=== PATIENT | female | born 1930 | race Caucasian/White ===

== ENCOUNTER → 2016-06-28 | Outpatient (CLI) | payer MEDICARE ==
[~2016-06-28] MED LIST: CYMB60CA PO; DIAZ10 PO; EZET10 PO; MEVA40TA PO; PROP60 PO; REME15TA2 PO
[2016-06-28 14:01] LABS: ANION GAP 8 MEQ/L (5-15); AST (GOT) 22 U/L (15-37); BICARBONATE 25.7 MEQ/L (21.0-32.0); BLOOD UREA NITROGEN 13 MG/DL (7-18); CHLORIDE 109 MEQ/L (98-107); GLOMERULAR FILTRATION RATE 56 ML/MIN (>89); GLUCOSE,FASTING 66 MG/DL (74-99); POTASSIUM 3.8 MEQ/L (3.5-5.1); SODIUM (NA) 143 MEQ/L (136-145)
[2016-06-28 14:05] LABS: ALKALINE PHOSPHATASE 70 U/L (45-117); ALT (GPT) 24 U/L (10-53); HDL CHOLESTEROL 72.3 MG/DL (40.0-60.0); LDL CHOLESTEROL 87 MG/DL (0-99); TOTAL BILIRUBIN ADULT 0.4 MG/DL (0.2-1.0)
[2016-06-28 14:16] LABS: AUTOMATED NEUTROPHIL # 4.2 TH/MM3 (1.8-7.7); BASOPHIL # 0.1 TH/MM3 (0-0.2); BASOPHIL % 1.1 % (0.0-2.0); EOSINOPHIL # 0.6 TH/MM3 (0-0.4); HEMATOCRIT 43.5 % (35.0-46.0); HEMO FLAGS DIFF FINAL; LYMPH % 24.9 % (9.0-44.0); LYMPHOCYTE # 1.8 TH/MM3 (1.0-4.8); MEAN CELL VOLUME 90.6 FL (80.0-100.0); MEAN CORPUSCULAR HEMOGLOBIN 29.1 PG (27.0-34.0); MEAN CORPUSCULAR HGB CONC 32.2 % (32.0-36.0); MONO % 7.9 % (0.0-8.0); NEUT % 58.1 % (16.0-70.0); PLATELET COUNT 289 TH/MM3 (150-450); RED BLOOD COUNT 4.81 MIL/MM3 (4.00-5.30); WHITE BLOOD COUNT 7.2 TH/MM3 (4.0-11.0)
== END ==
LOC: PLAB 10:19
PROVIDERS: ATTEND Family Medicine
DX: E78.2 Mixed hyperlipidemia (principal)
CPT/HCPCS: 36415; 80053; 80061; 85025

== ENCOUNTER → 2017-01-31 | Outpatient (CLI) | payer MEDICARE ==
[2017-01-31 12:17] LABS: ANION GAP 7 MEQ/L (5-15); AST (GOT) 30 U/L (15-37); BICARBONATE 24.7 MEQ/L (21.0-32.0); BLOOD UREA NITROGEN 13 MG/DL (7-18); CHLORIDE 107 MEQ/L (98-107); GLOMERULAR FILTRATION RATE 58 ML/MIN (>89); GLUCOSE,FASTING 86 MG/DL (74-99); SODIUM (NA) 139 MEQ/L (136-145)
[2017-01-31 12:19] LABS: ALT (GPT) 32 U/L (10-53)
[2017-01-31 12:21] LABS: ALKALINE PHOSPHATASE 80 U/L (45-117); HDL CHOLESTEROL 84.1 MG/DL (40.0-60.0); LDL CHOLESTEROL 85 MG/DL (0-99); TOTAL BILIRUBIN ADULT 0.5 MG/DL (0.2-1.0)
== END ==
LOC: PLAB 10:15
PROVIDERS: ATTEND Family Medicine
DX: G25.0 Essential tremor (principal); E78.2 Mixed hyperlipidemia
CPT/HCPCS: 36415; 80053; 80061

== ENCOUNTER → 2017-08-16 | Outpatient (CLI) | payer MEDICARE ==
[2017-08-16 13:57] LABS: AST (GOT) 29 U/L (15-37); BICARBONATE 28.6 MEQ/L (21.0-32.0); BLOOD UREA NITROGEN 19 MG/DL (7-18); CALCIUM 9.3 MG/DL (8.5-10.1); CHLORIDE 106 MEQ/L (98-107); CREATININE 1.03 MG/DL (0.50-1.00); GLOMERULAR FILTRATION RATE 51 ML/MIN (>89); GLUCOSE,FASTING 78 MG/DL (74-99); SODIUM (NA) 143 MEQ/L (136-145)
[2017-08-16 13:58] LABS: ALT (GPT) 30 U/L (10-53); CHOLESTEROL 182 MG/DL (120-200); TRIGLYCERIDES 110 MG/DL (42-150)
[2017-08-16 14:01] LABS: ALKALINE PHOSPHATASE 75 U/L (45-117); CHOLESTEROL/ HDL RATIO 2.42 RATIO; HDL CHOLESTEROL 75.2 MG/DL (40.0-60.0); LDL CHOLESTEROL 85 MG/DL (0-99); TOTAL BILIRUBIN ADULT 0.6 MG/DL (0.2-1.0); TOTAL PROTEIN 7.4 GM/DL (6.4-8.2)
== END ==
LOC: PLAB 09:41
PROVIDERS: ATTEND Family Medicine
DX: L57.0 Actinic keratosis (principal); E78.2 Mixed hyperlipidemia; L91.8 Other hypertrophic disorders of the skin
CPT/HCPCS: 36415; 80053; 80061

== ENCOUNTER 2017-12-02 18:45 | Inpatient (IN) ==
[2017-12-02] MEDS ORDERED: Morphine Inj 4 MG/ML Vial IV.PUSH ONE ×2 (19:15→20:39)
[2017-12-02] MEDS ORDERED: Pantoprazole Inj 40 MG Vial IV.PUSH ONE (19:16)
[2017-12-02] MEDS: Sod Chloride 0.9% Inj 1,000 ML IV.CONT SCH (19:28)
[2017-12-02 19:33] LABS: Chloride 106 meq/L (98-107); Potassium 3.6 meq/L (3.5-5.1); Sodium 142 meq/L (136-145)
[2017-12-02 19:37] LABS: Albumin 3.8 g/dL (3.4-5.0); Anion Gap 12 meq/L (5-15); Blood Urea Nitrogen 22 mg/dL (7-18); Calcium 9.3 mg/dL (8.5-10.1); Carbon Dioxide 23.9 meq/L (21.0-32.0); Glucose,Random 139 mg/dL (74-106); Lipase 366 U/L (73-393)
--- NOTE | 2017-12-02 19:38 | ED ---
HPI General Chief Complaint: Abdominal Pain Stated Complaint: Abd pain x today Source: patient Mode of arrival: ambulatory Limitations: no limitations History of Present Illness HPI narrative: 87-year-old female presents to the emergency department by private transportation for complaint of upper abdominal pain since 10 AM today. Patient states that this is her third episode of abdominal pain this week. Patient states she was visiting her son in [place] on Tuesday and had to go to the emergency department while there because of severe upper abdominal pain and underwent CT imaging which revealed no acute abnormality and she was encouraged to follow-up with her primary care provider and her obstetrician gynecologist when she returned home. Patient states she has been having intermittent pain like this for the past year and was sent to have an ultrasound and HIDA scan by her primary care provider who told her that everything was okay as of October. Patient has had no fever chills patient has had intermittent bilious emesis and nausea. Patient has been following a low- fat diet. Patient states that eating has seemed to exacerbate some of her symptoms. Patient has had no hematemesis or coffee-ground emesis. Patient denies any melena or hematochezia. Patient has noted some dark stool and decreased bowel movement but normal flatus. Patient denies any chest pain or shortness of breath. Patient does have history of depression GERD and dyslipidemia. Patient denies any urinary symptoms or respiratory illness symptoms no shortness of breath or pleuritic chest pain no sweats no referred neck jaw back shoulder arm pain. At times abdominal pain does extend into her back. Patient rates her pain 9/10 in intensity. MD complaint: abdominal pain Onset (ago): week(s) Pain Consistency: intermittent Location: diffuse and epigastric Severity: severe Quality: cramping and aching Radiation: back Relieving factors: nothing Exacerbating factors: eating Context: history of similar episodes Associated symptoms: nausea and vomiting Treatments prior to arrival: other (non fatty diet) Related Data Home Medications Medication Instructions Recorded Confirmed ezetimibe [Zetia] 10 mg PO DAILY 12/02/17 12/02/17 lovastatin 80 mg PO QPM 12/02/17 12/02/17 mirtazapine 15 mg PO DAILY 12/02/17 12/02/17 Allergies Allergy/AdvReac Type Severity Reaction Status Date / Time No Known Allergies Allergy Verified 12/02/17 18:46 Review of Systems ROS: all other systems reviewed are negative PMFSH Medical History Medical History History of depression (Acute) History of high cholesterol (Acute) Surgical History Surgical History No history of previous surgery (Acute) Social History Social History Substance History: No History of Abuse Second Hand Smoke Exposure: No Smoking Status: Never smoker How Often Do You Have a Drink Containing Alcohol: Monthly or less Recent Travel in [facility] within the Last 8 Weeks: Yes Recent Out of Country Travel within the Last 8 Weeks: No Immunization History Tetanus Immunization: Unsure Hx Influenza Vaccine This Season: Yes Exam Narrative Exam Narrative: GENERAL: Well-nourished, well-developed patient. No respiratory distress, tearful. SKIN: Focused skin assessment warm/dry. HEAD: Normocephalic. EYES: No scleral icterus. No injection or drainage. NECK: Supple, trachea midline. No JVD or lymphadenopathy. CARDIOVASCULAR: Regular rate and rhythm without murmurs, gallops, or rubs. Bilateral radial and dorsalis pedis pulses 2+ to palpation. RESPIRATORY: Breath sounds equal bilaterally. No accessory muscle use. GASTROINTESTINAL: Abdomen soft, mild reproducible epigastric tenderness to palpation without guarding or rebound and no palpable pulsatile mass, nondistended. MUSCULOSKELETAL: No cyanosis, or edema. BACK: Nontender without obvious deformity. No CVA tenderness. Course Initial Documented Vital Signs Temperature 97.7 F 12/02/17 18:46 Pulse Rate 115 H 12/02/17 18:46 Respiratory Rate 18 12/02/17 18:46 Blood Pressure 199/97 H 12/02/17 18:46 Pulse Oximetry 96 12/02/17 18:46 Last Documented Vital Signs Temperature 97.7 F 12/02/17 18:46 Pulse Rate 94 H 12/02/17 22:25 Respiratory Rate 18 12/02/17 22:25 Blood Pressure 158/78 H 12/02/17 22:25 Pulse Oximetry 96 12/02/17 22:25 Medical Decision Making MDM Narrative Medical decision making narrative: 87-year-old female with complaint of upper abdominal pain radiating into her back intermittently with 3-4 episodes of similar complaint of pain this past week since Tuesday. Patient was visiting out of town in [place] and went to a local emergency department on Tuesday where CT imaging study identified no acute process and she was encouraged to follow-up with her primary care provider and obstetrician gynecologist upon returning to [place]. Patient had pain relief after receiving morphine. Patient denies chest pain or shortness of breath. Patient does have history of GERD depression and dyslipidemia. Patient states she has been following a low-fat diet without resolution of symptoms. Patient has had intermittent symptoms for approximately a year and was referred for an ultrasound and HIDA scan by her primary care provider in August and October which revealed no acute abnormalities according to the patient. Patient states this is her third bout of pain this week and rates her discomfort 9/10 in intensity. Patient has had bilious emesis without hematemesis or coffee-ground emesis. Patient states she has noticed dark stool but not black stool or grossly bloody stool. Patient denies diarrhea or constipation. Records will be requested from recent ER visit. Patient placed on bus driver/monitor with continuous pulse oximetry IV access obtained specimens collected and sent for resulting; patient administered Zofran 4 mg IV maintenance IV fluids normal saline at 100 cc/h, Protonix 40 mg IV and morphine sulfate 2 mg IV 1 dose EKG performed shows sinus rhythm no acute ST elevation injury pattern or ectopy noted. At 8:50 PM patient complains of recurrent pain additional morphine sulfate 1 mg IV administered patient given bolus of normal saline 250 cc to be followed by 2 and 50 cc stable blood pressure mild tachycardia. CTA of the abdomen and pelvis has been ordered to evaluate for mesenteric ischemia. Patient on chest x -ray is noted to have a fairly large hiatal hernia. CBC with automated differential mild leukocytosis 13,600 and lactic acid is minimally elevated at 2.1. Patient identified to have renal insufficiency which has worsened since last laboratory work 08/2017. At 9:20 PM records from [facility] were received and workup was unremarkable with CT abdomen pelvis which revealed no acute intra-abdominal or pelvic abnormality white count was mildly elevated at 13,400 with normal chemistries and renal function BUN was 17 and creatinine of 0.9. Patient has gone for CT imaging of abdomen pelvis. [address] abdomen and pelvis shows no significant arterial stenosis large hiatal hernia with very distended stomach with induration of fat around the hiatal hernia probable source of abdominal pain colonic diverticula without inflammatory changes and small left pleural effusion with atelectasis to the left lower lobe. Patient informed of imaging results with recommendation for placement of NG tube observation admission and bowel rest. Patient's case discussed with surgery, concurs with current plan and plan for consultation as needed to medicine service; call placed to medicine service for observation admission. Medical Screen Exam Complete: Yes Emergency Medical Condition: Yes Differential Diagnosis Differential Diagnosis: Abdominal pain, gastritis/peptic ulcer disease, cholecystitis/biliary colic/choledocholithiasis, pancreatitis, diverticulitis, also to consider bowel obstruction,mesenteric ischemia,viscus perforation, abdominal aortic aneurysm, ACS, [place] Medical Records Medical records reviewed: Yes I reviewed the patient's medical records. Lab Data Lab results reviewed: Yes I reviewed the patient's lab results. Result diagrams: 12/02/17 19:10 12/02/17 19:10 Lab Results 12/02/17 12/02/17 12/02/17 Range/Units 19:10 19:10 19:18 CBC w Diff Auto diff final WBC 13.6 H (4.0-11.0) th/mm3 RBC 5.07 (4.00-5.30) mil/mm3 Hgb 15.4 H (11.6-15.3) gm/dL Hct 45.6 (35.0-46.0) % MCV 90.0 (80.0-100.0) fL MCH 30.4 (27.0-34.0) pg MCHC 33.8 (32.0-36.0) % RDW 13.9 (11.6-17.2) % Plt Count 340 (150-450) th/mm3 MPV 8.0 (7.0-11.0) fL Neut % (Auto) 87.7 H (16.0-70.0) % Lymph % (Auto) 7.9 L (9.0-44.0) % [place] % (Auto) 3.6 (0.0-8.0) % Eos % (Auto) 0.3 (0.0-4.0) % Baso % (Auto) 0.5 (0.0-2.0) % Neut # (Auto) 11.9 H (1.8-7.7) th/mm3 Lymph # (Auto) 1.1 (1.0-4.8) th/mm3 [place] # (Auto) 0.5 (0.0-0.9) th/mm3 Eos # (Auto) 0.0 (0.0-0.4) th/mm3 Baso # (Auto) 0.1 (0.0-0.2) th/mm3 WBC Differential . Differential Comment . Sodium 142 (136-145) meq/L Potassium 3.6 (3.5-5.1) meq/L Chloride 106 (98-107) meq/L Carbon Dioxide 23.9 (21.0-32.0) meq/L Anion Gap 12 (5-15) meq/L BUN 22 H (7-18) mg/dL Creatinine 1.20 H (0.50-1.00) mg/dL Estimated GFR 43 L (>89) mL/min Random Glucose 139 H (74-106) mg/dL Lactic Acid 2.1 H (0.4-2.0) mmol/L Calcium 9.3 (8.5-10.1) mg/dL Total Bilirubin 0.4 (0.2-1.0) mg/dL AST 28 (15-37) U/L ALT 31 (10-53) U/L Alkaline Phosphatase 86 (45-117) U/L Troponin I Less than 0.02 L (0.02-0.05) ng/mL Total Protein 7.8 (6.4-8.2) g/dL Albumin 3.8 (3.4-5.0) g/dL Lipase 366 (73-393) U/L Urine Color (Yellw/Straw) Urine Clarity (Clear) Urine pH (5.0-8.5) Ur Specific [place] (1.002-1.035) Urine Protein (Neg-Trace) mg/dL Urine Glucose (UA) (Negative) mg/dL Urine Ketones (Negative) mg/dL Urine Occult Blood (Negative) Urine Nitrate (Negative) Urine Bilirubin (Negative) Urine Urobilinogen (Less than 2) mg/dL Ur Leukocyte Esterase (Negative) Urine RBC (0-3) /hpf Urine WBC (0-5) /hpf Urine WBC Clumps (None) Ur Squamous Epith Cells (0-5) /hpf Micro UA Comment Ur Microscopic Review Urine Culture Comments 12/02/17 Range/Units 22:10 CBC w Diff WBC (4.0-11.0) th/mm3 RBC (4.00-5.30) mil/mm3 Hgb (11.6-15.3) gm/dL Hct (35.0-46.0) % MCV (80.0-100.0) fL MCH (27.0-34.0) pg MCHC (32.0-36.0) % RDW (11.6-17.2) % Plt Count (150-450) th/mm3 MPV (7.0-11.0) fL Neut % (Auto) (16.0-70.0) % Lymph % (Auto) (9.0-44.0) % [place] % (Auto) (0.0-8.0) % Eos % (Auto) (0.0-4.0) % Baso % (Auto) (0.0-2.0) % Neut # (Auto) (1.8-7.7) th/mm3 Lymph # (Auto) (1.0-4.8) th/mm3 [place] # (Auto) (0.0-0.9) th/mm3 Eos # (Auto) (0.0-0.4) th/mm3 Baso # (Auto) (0.0-0.2) th/mm3 WBC Differential Differential Comment Sodium (136-145) meq/L Potassium (3.5-5.1) meq/L Chloride (98-107) meq/L Carbon Dioxide (21.0-32.0) meq/L Anion Gap (5-15) meq/L BUN (7-18) mg/dL Creatinine (0.50-1.00) mg/dL Estimated GFR (>89) mL/min Random Glucose (74-106) mg/dL Lactic Acid (0.4-2.0) mmol/L Calcium (8.5-10.1) mg/dL Total Bilirubin (0.2-1.0) mg/dL AST (15-37) U/L ALT (10-53) U/L Alkaline Phosphatase (45-117) U/L Troponin I (0.02-0.05) ng/mL Total Protein (6.4-8.2) g/dL Albumin (3.4-5.0) g/dL Lipase (73-393) U/L Urine Color Yellow (Yellw/Straw) Urine Clarity Clear (Clear) Urine pH 7.0 (5.0-8.5) Ur Specific [place] 1.015 (1.002-1.035) Urine Protein Trace (Neg-Trace) mg/dL Urine Glucose (UA) Negative (Negative) mg/dL Urine Ketones 15 H (Negative) mg/dL Urine Occult Blood Small H (Negative) Urine Nitrate Negative (Negative) Urine Bilirubin Negative (Negative) Urine Urobilinogen 0.2 (Less than 2) mg/dL Ur Leukocyte Esterase Small H (Negative) Urine RBC 0-3 (0-3) /hpf Urine WBC 9-20 H (0-5) /hpf Urine WBC Clumps Few H (None) Ur Squamous Epith Cells 0-5 (0-5) /hpf Micro UA Comment Culture indicated Ur Microscopic Review Microscopic reviewed Urine Culture Comments Culture indicated Imaging Data Radiologist's impression: Chest X-Ray 12/02/17 19:08 CONCLUSION: Suspected large hiatal hernia. Abdomen/Pelvis CTA 12/02/17 19:56 CONCLUSION: 1. No significant area of arterial stenosis is seen. 2. Large hiatal hernia with a very distended stomach. There is some mild induration of the fat around the hiatal hernia. It is thought the dilated hiatal hernia is much more likely a source for abdominal pain. 3. Colonic diverticula without inflammatory change. 4. Minimal left pleural effusion with accompanying atelectasis or consolidation at the left lower lobe. ECG Data EKG Prior to Arrival: No Prior ECG tracings: not available for review Interpretation: EKG: Sinus tachycardia rate [address] elevation injury pattern or ectopy, age-indeterminate Q-wave inferiorly, artifact is present at baseline. Discharge Plan Discharge Disposition Patient Disposition: 30 Still Patient Discharge Condition Condition: Stable Discharge Details Diagnosis: Abdominal pain, Hiatal hernia, UTI (urinary tract infection) Physicians Team ED Provider: Riddhi Strickland Primary Care Provider: Opal Rossi Rxs /Orders / Referrals /Forms Prescriptions: No Action lovastatin 40 mg Tablet 80 mg PO QPM RF: 0 mirtazapine 15 mg Tablet 15 mg PO DAILY RF: 0 ezetimibe [Zetia] 10 mg Tablet 10 mg PO DAILY RF: 0 Status ED Status: Admitted Observation Patient
[2017-12-02 19:40] LABS: Alanine Aminotransferase 31 U/L (10-53); Aspartate Aminotransferase 28 U/L (15-37); Glomerular Filtration Rate 43 mL/min (>89)
[2017-12-02 19:42] LABS: Total Protein 7.8 g/dL (6.4-8.2)
[2017-12-02 19:43] LABS: Alkaline Phosphatase 86 U/L (45-117)
[2017-12-02 19:45] LABS: Baso # (Auto) 0.1 th/mm3 (0.0-0.2); Baso % (Auto) 0.5 % (0.0-2.0); Eos % (Auto) 0.3 % (0.0-4.0); Hematocrit 45.6 % (35.0-46.0); Hemoglobin 15.4 gm/dL (11.6-15.3); Lymph # (Auto) 1.1 th/mm3 (1.0-4.8); Lymph % (Auto) 7.9 % (9.0-44.0); Mean Corpuscular HGB Conc 33.8 % (32.0-36.0); Mean Corpuscular Hemoglobin 30.4 pg (27.0-34.0); Mono # (Auto) 0.5 th/mm3 (0.0-0.9); Mono % (Auto) 3.6 % (0.0-8.0); Neut # (Auto) 11.9 th/mm3 (1.8-7.7); Neut % (Auto) 87.7 % (16.0-70.0); Platelet Count 340 th/mm3 (150-450); Red Blood Count 5.07 mil/mm3 (4.00-5.30); Red Cell Distribution Width 13.9 % (11.6-17.2); White Blood Count 13.6 th/mm3 (4.0-11.0)
--- NOTE | 2017-12-02 19:56 | XR ---
EXAM DATE: 12/02/2017 7:39 PM EDT AGE/SEX: 87 years / Female INDICATIONS: Chest discomfort, abdominal pain for 1 week CLINICAL DATA: This is the patient's initial encounter. Patient reports that signs and symptoms have been present for 1 day and indicates a pain score of 0/10. MEDICAL/SURGICAL HISTORY: None. None. COMPARISON: No prior exams available for comparison. FINDINGS: There is an air-containing mass in the lower chest thought almost certainly to represent a large hia roberto hernia. The heart size is normal. The lungs are grossly clear. CONCLUSION: Suspected large hiatal hernia. Electronically signed by: Yo Boland MD 12/02/2017 7:55 PM EDT
[2017-12-02] MEDS ORDERED: Sodium Chlor 0.9% Inj 500 ML IV.SIG SCH (21:00)
[2017-12-02 22:26] LABS: Bilirubin,Urine Negative (Negative); Clarity,Urine Clear (Clear); Color,Urine Yellow (Yellw/Straw); Glucose,Urine (UA) Negative (Negative); Leukocyte Esterase,Urine Small (Negative); Nitrite,Urine Negative (Negative); Specific Gravity,Urine 1.015 (1.002-1.035); Urobilinogen,Urine 0.2 mg/dL (Less than 2)
[2017-12-02 22:38] LABS: RBC,Urine 0-3 /hpf (0-3); Squamous Epithelial Cell,Urine 0-5 /hpf (0-5)
--- NOTE | 2017-12-02 22:41 | CT ---
EXAM DATE: 12/02/2017 10:14 PM EDT AGE/SEX: 87 years / Female INDICATIONS: Abdomen pain. Possible mesentery ischemia. CLINICAL DATA: This is the patient's initial encounter. Patient reports that signs and symptoms have been present for 1 day and indicates a pain score of 8/10. MEDICAL/SURGICAL HISTORY: . Depression. High cholesterol. None. RADIATION DOSE: 18.42 CTDI (mGy) COMPARISON: No prior exams available for comparison. TECHNIQUE: Volumetric scanning was performed using a multi-row detector CT scanner during bolus infu estrellita of 75 ml Omnipaque 350 (iohexol) nonionic water-soluble contrast as a single exam dose. The d luci was post processed with a variety of visualization algorithms including full volume maximum inten sity projection, multi-planar sliding thin slab reformation, curved planar reformation, and surface r endering techniques. Using automated exposure control and adjustment of the mA and/or kV according t o patient size, radiation dose was kept as low as reasonably achievable to obtain optimal diagnostic quality images. DICOM format image data is available electronically for review and comparison. FINDINGS: Abdominal Aorta: The lumen is smooth without significant narrowing or aneurysmal dilation. The pr oximal celiac and superior mesenteric arteries are patent and normal in diameter. There are solitary renal arteries bilaterally without gross abnormality. There is minimal atherosclerotic calcification present. Bifurcation: Normal. Right Pelvis: The right common iliac, internal iliac, and external iliac vessels are patent without luminal irregularity. Left Pelvis: The left common iliac, internal iliac, and external iliac vessels are patent and withou t luminal irregularity. There is a large hiatal hernia. The stomach appears very distended. There is some induration in the f at around the hiatal hernia. There is a 3.2 cm cyst at the superior medial right kidney. Colonic dive rticula are present. There is a minimal left pleural effusion. There is atelectasis or consolidation at the left lower lobe. There is a chronic appearing concave deformity at the anterior superior aspec t of the L2 vertebral body. There is degenerative change in the lumbar spine. CONCLUSION: 1. No significant area of arterial stenosis is seen. 2. Large hiatal hernia with a very distended stomach. There is some mild induration of the fat aroun d the hiatal hernia. It is thought the dilated hiatal hernia is much more likely a source for abdomin al pain. 3. Colonic diverticula without inflammatory change. 4. Minimal left pleural effusion with accompanying atelectasis or consolidation at the left lower lo be. Electronically signed by: Yo Boland MD 12/02/2017 10:40 PM EDT
[2017-12-03] MEDS: Morphine Sulfate Inj 2 MG/ML Vial IV.PUSH PRN ×4 (01:29→19:46)
[2017-12-03] MEDS ORDERED: Bisacodyl 10 MG Supp RECTAL PRN (01:39)
[2017-12-03] MEDS: Sod Chloride 0.9% Inj 1,000 ML IV.CONT SCH ×2 (05:18→15:24)
--- NOTE | 2017-12-03 09:50 | P.HP ---
History of Present Illness Primary Care Physician: Opal Rossi MD Chief Complaint: Abdominal pain History of Present Illness: 87-year-old female with known history of hyperlipidemia, depression who presented the hospital because of abdominal pain. Patient states that she has relatively chronic abdominal pain which she is been undergoing workup by her primary medical doctor Dr. Rossi over the last few months. Patient states that she had abdominal ultrasound performed and then subsequently referred to have a HIDA scan performed. She is told that she produces too much bile. However patient has continued abdominal pain. She did go visit her son up in [place] 2 weeks ago and she just progressively had abdominal pain with dry heaves. She went to a ER up in [place] and they did evaluation on her and told her that they could not find anything wrong. The pain progressively got worse so she flew home 1 week early and came straight to the emergency department without going home. Patient had workup done emergency department and had findings could have of sepsis to include leukocytosis, lactic acidosis, tachycardia, urinary tract infection. CT scan was done of the abdomen which did indicate distended hiatal hernia which could be the etiology of her abdominal comfort. ER physician did discuss the case with general surgery who is in agreement with the tentative treatment plan of NG tube to low intermittent suction and consult as needed. Upon evaluating the patient she does have NG tube in place with continued output. Patient still holding her abdomen indicates she still having significant amount of pain. Patient denies any hematemesis. She states that there was dark colored stool. She indicates that the ER physician did a test and told her that it was not blood. Patient indicates that she is not followed up with any GI physician in reference to her abdominal pain. - Diagnosis (1) Sepsis (2) Abdominal pain (3) Hiatal hernia (4) UTI (urinary tract infection) Review of Systems All other systems reviewed negative except as stated in HPI Gastrointestinal: Reports abdominal pain, Reports nausea, Reports vomiting PMFSH - History History Provided By: Patient - Medical History Medical History: Medical History (Last Reviewed 12/02/17 @ 19:31 by Riddhi Strickland MD) History of depression History of high cholesterol - Surgical History Surgical History: Surgical History (Last Updated 12/03/17 @ 09:31 by ELROY Sullivan) History of cataract surgery - Family History Family History: Family History (Last Updated 12/03/17 @ 09:31 by ELROY Sullivan) Father History of myocardial infarction - Tobacco History Second Hand Smoke Exposure: No Tobacco Use In Past 30 Days: No Smoking Status: Former smoker Number of Pack Years (if former smoker): 10 (Patient states that she quit smoking 50 years ago) - Alcohol History How Often Do You Have a Drink Containing Alcohol: Never - Substance Use History Substance History: No History of Abuse - Travel History Recent Travel in the [place] Within the Last 8 Weeks: Yes Recent Travel Out of the Country Within the Last 8 Weeks: No - Immunization History Tetanus Immunization: <5 Years Hx Influenza Vaccine This Season: Yes Medications and Allergies Active Medications: Active Medications Al Hydroxide/Mg Hydroxide (Milk Of Magnesia Liq) 30 ml PO Q12H PRN PRN Reason: Mild Constipation Bisacodyl (Dulcolax Supp) 10 mg RECTAL DAILY PRN PRN Reason: SEVERE CONSITIPATION Sodium Chloride (Ns Inj) 1,000 mls @ 100 mls/hr IV.CONT .Q10H PAPO Last Admin: 12/03/17 05:18 Dose: 100 mls/hr Sodium Chloride (Ns Inj) 500 mls @ 0 mls/hr IV.SIG BOLUS PAPO Last Infusion: 12/02/17 22:18 Dose: Infused Ceftriaxone Sodium 1,000 mg/ (Sodium Chloride) 100 mls @ 200 mls/hr IV.SIG Q24H PAPO Lactulose (Lactulose Liq) 30 ml PO DAILY PRN PRN Reason: SEVERE CONSITIPATION Morphine Sulfate (Morphine Inj) 2 mg IV.PUSH Q3H PRN PRN Reason: ABDOMINAL PAIN Last Admin: 12/03/17 06:37 Dose: 2 mg Ondansetron HCl (Zofran Inj) 4 mg IV.PUSH Q6H PRN PRN Reason: NAUSEA OR VOMITING Last Admin: 12/03/17 04:10 Dose: 4 mg Senna/Docusate Sodium (Marian-Colace) 1 tab PO BID PAPO Sennosides (Senokot) 17.2 mg PO Q12H PRN PRN Reason: Moderate Constipation Sodium Chloride (Ns Flush) 2 ml IV.FLUSH PRN PRN PRN Reason: FLUSH AFTER USING IV ACCESS Allergies Allergy/AdvReac Type Severity Reaction Status Date / Time No Known Allergies Allergy Verified 12/02/17 18:46 Home Medications Medication Instructions Recorded Confirmed Type ezetimibe [Zetia] 10 mg PO DAILY 12/02/17 12/02/17 History lovastatin 80 mg PO QPM 12/02/17 12/02/17 History mirtazapine 15 mg PO DAILY 12/02/17 12/02/17 History Exam Vital signs: Vital Signs 12/02/17 18:46 12/02/17 20:00 12/02/17 20:50 Temperature 97.7 F Pulse Rate 115 H 92 H Respiratory Rate Blood Pressure 199/97 H 145/82 H Pulse Oximetry 96 98 12/02/17 22:25 12/03/17 00:28 12/03/17 07:33 Temperature 97.7 F 97.8 F Pulse Rate 94 H 97 H 92 H Respiratory Rate Blood Pressure 158/78 H 170/83 H 146/73 H Pulse Oximetry 96 93 L 92 L Intake & Output 12/02/17 12/03/17 12/03/17 18:59 06:59 18:59 Intake Total 1600 / 1600 Balance 1600 / 1600 Weight 66.8 kg 61.1 kg Intake: IV 1600 / 1600 NS Inj 1,000 ML @ 100 mls/hr IV 1000 / 1000 .CONT .Q10H PAPO Rx#:[id number] NS Inj 500 ML @ Wide Open IV. 500 / 500 SIG BOLUS PAPO Rx#:[id number] Rocephin Inj 1,000 MG In NS Inj 100 / 100 100 ML @ 200 mls/hr IV.SIG ONCE ONE Rx#:[id number] Oral 0 / 0 Other: # Voids 1 Date of Last Bowel Movement 12/02/17 Weight On Admission 61.4 kg Narrative: GENERAL: Well-developed, well-nourished, in no acute distress. alert and orientated HEENT: Head is normocephalic without any lesions or masses noted. Facial features are symmetric. Eyes: Pupils equal round reactive to light. Extraocular muscles are intact. Conjunctivae were clear. Oropharyngeal: Pharynx without any erythema edema. Tongue is midline without deviation. Buccal mucosa is moist without any masses or lesions. NG tube in place to low intermittent wall suction with green fluid NECK: Supple without any masses. Trachea midline no deviation. No JVD, no bruits are appreciated CARDIAC: Regular rhythm, regular rate. S1/S2 are heard. No murmurs gallops or rubs. LUNGS: Clear to auscultation bilaterally. No wheeze, rhonchi or rales. No use of accessory muscles on inspiration or expiration. ABDOMEN: Soft, mild epigastric tenderness. Nondistended. Bowel sounds heard in all 4 quadrants. No organomegaly or masses. Negative rebound, negative guarding. EXTREMITIES: No edema, pulses are equal bilaterally. No cyanosis or clubbing NEUROLOGY: Mood and affect appear appropriate. Cranial nerves II through XII grossly intact. Muscle strength 5/5 in upper and lower extremities bilaterally. Deep tendon reflexes are 2+ in upper and lower extremities bilaterally. Results - Labs CBC & Chem 7: 12/02/17 19:10 12/02/17 19:10 Labs: Laboratory Results - last 24 hr 12/02/17 12/02/17 12/02/17 19:10 19:10 19:18 CBC w Diff Auto diff final WBC 13.6 H RBC 5.07 Hgb 15.4 H Hct 45.6 MCV 90.0 MCH 30.4 MCHC 33.8 RDW 13.9 Plt Count 340 MPV 8.0 Neut % (Auto) 87.7 H Lymph % (Auto) 7.9 L Andrews % (Auto) 3.6 Eos % (Auto) 0.3 Baso % (Auto) 0.5 Neut # (Auto) 11.9 H Lymph # (Auto) 1.1 Andrews # (Auto) 0.5 Eos # (Auto) 0.0 Baso # (Auto) 0.1 WBC Differential . Differential Comment . Sodium 142 Potassium 3.6 Chloride 106 Carbon Dioxide 23.9 Anion Gap 12 BUN 22 H Creatinine 1.20 H Estimated GFR 43 L Random Glucose 139 H Lactic Acid 2.1 H Calcium 9.3 Total Bilirubin 0.4 AST 28 ALT 31 Alkaline Phosphatase 86 Troponin I Less than 0.02 L Total Protein 7.8 Albumin 3.8 Lipase 366 Urine Color Urine Clarity Urine pH Ur Specific [place] Urine Protein Urine Glucose (UA) Urine Ketones Urine Occult Blood Urine Nitrate Urine Bilirubin Urine Urobilinogen Ur Leukocyte Esterase Urine RBC Urine WBC Urine WBC Clumps Ur Squamous Epith Cells Micro UA Comment Ur Microscopic Review Urine Culture Comments 12/02/17 22:10 CBC w Diff WBC RBC Hgb Hct MCV MCH MCHC RDW Plt Count MPV Neut % (Auto) Lymph % (Auto) Andrews % (Auto) Eos % (Auto) Baso % (Auto) Neut # (Auto) Lymph # (Auto) Andrews # (Auto) Eos # (Auto) Baso # (Auto) WBC Differential Differential Comment Sodium Potassium Chloride Carbon Dioxide Anion Gap BUN Creatinine Estimated GFR Random Glucose Lactic Acid Calcium Total Bilirubin AST ALT Alkaline Phosphatase Troponin I Total Protein Albumin Lipase Urine Color Yellow Urine Clarity Clear Urine pH 7.0 Ur Specific [place] 1.015 Urine Protein Trace Urine Glucose (UA) Negative Urine Ketones 15 H Urine Occult Blood Small H Urine Nitrate Negative Urine Bilirubin Negative Urine Urobilinogen 0.2 Ur Leukocyte Esterase Small H Urine RBC 0-3 Urine WBC 9-20 H Urine WBC Clumps Few H Ur Squamous Epith Cells 0-5 Micro UA Comment Culture indicated Ur Microscopic Review Microscopic reviewed Urine Culture Comments Culture indicated - Imaging Impressions Chest X-Ray 12/02/17 19:08 CONCLUSION: Suspected large hiatal hernia. Abdomen/Pelvis CTA 12/02/17 19:56 CONCLUSION: 1. No significant area of arterial stenosis is seen. 2. Large hiatal hernia with a very distended stomach. There is some mild induration of the fat around the hiatal hernia. It is thought the dilated hiatal hernia is much more likely a source for abdominal pain. 3. Colonic diverticula without inflammatory change. 4. Minimal left pleural effusion with accompanying atelectasis or consolidation at the left lower lobe. Caprini VTE Risk Assessment Caprini VTE Risk Assessment: Moderate/High Risk (score >= 2) Caprini Risk Assessment Model: Point Value = 1 Point Value = 2 Point Value = 3 Point Value = 5 Age 41-60 Minor surgery BMI > 25 kg/m2 Swollen legs Varicose veins or History of unexplained or recurrent spontaneous Oral contraceptives or hormone replacement Sepsis (< 1 month) Serious lung disease, including pneumonia (< 1 month) Abnormal pulmonary function Acute myocardial infarction Congestive heart failure (< 1 month) History of inflammatory bowel disease Medical patient at bed rest Age 61-74 Arthroscopic surgery Major open surgery (> 45 min) Laparoscopic surgery (> 45 min) Malignancy Confined to bed (> 72 hours) Immobilizing plaster cast Central venous access Age >= 75 History of VTE Family history of VTE Factor V Leiden Prothrombin [id number] Lupus anticoagulant Anticardiolipin antibodies Elevated serum homocysteine Heparin-induced thrombocytopenia Other congenital or acquired thrombophilia Stroke (< 1 month) Elective arthroplasty Hip, pelvis, or leg fracture Acute spinal cord injury (< 1 month) Prophylaxis Regimen: Total Risk Factor Score Risk Level Prophylaxis Regimen 0-1 Low Early ambulation 2 Moderate Order ONE of the following: *Sequential Compression Device (SCD) *Heparin 5000 units SQ BID 3-4 Higher Order ONE of the following medications: *Heparin 5000 units SQ TID *Enoxaparin/Lovenox 40 mg SQ daily (WT < 150 kg, CrCl > 30 mL/min) *Enoxaparin/Lovenox 30 mg SQ daily (WT < 150 kg, CrCl > 10-29 mL/min) *Enoxaparin/Lovenox 30 mg SQ BID (WT < 150 kg, CrCl > 30 mL/min) AND/OR *Sequential Compression Device (SCD) 5 or more Highest Order ONE of the following medications: *Heparin 5000 units SQ TID (Preferred with Epidurals) *Enoxaparin/Lovenox 40 mg SQ daily (WT < 150 kg, CrCl > 30 mL/min) *Enoxaparin/Lovenox 30 mg SQ daily (WT < 150 kg, CrCl > 10-29 mL/min) *Enoxaparin/Lovenox 30 mg SQ BID (WT < 150 kg, CrCl > 30 mL/min) AND *Sequential Compression Device (SCD) Assessment and Plan - Assessment (1) Sepsis Code(s): A41.9 - Sepsis, unspecified organism Status: Acute (2) Abdominal pain Code(s): R10.9 - Unspecified abdominal pain Status: Acute (3) Hiatal hernia Code(s): K44.9 - Diaphragmatic hernia without obstruction or gangrene Status: Acute (4) UTI (urinary tract infection) Code(s): N39.0 - Urinary tract infection, site not specified Status: Acute - Plan Sepsis -Patient met criteria with leukocytosis, tachycardia, lactic acidosis, urinary tract infection -Chest x-ray only indicated large hiatal hernia -CT the abdomen indicated mild left pleural effusion with atelectasis and/or consolidation left lower lobe -Cultures and urine culture are pending -Patient continued on Rocephin -Follow-up CBC, lactic acid level Large distended hiatal hernia with inflammatory findings -Likely the etiology of the patient's chronic abdominal pain -NG tube to low intermittent suction -General surgery consultation for further recommendations -Pain control Hyperlipidemia -Continue to hold medications until patient able tolerate p.o. Depression -Continue to hold medication until patient able to tolerate p.o. DVT prevention -Sequential compression devices (2) Abdominal pain Qualifiers: Abdominal location: upper abdomen, unspecified Qualified Code(s): R10.10 - Upper abdominal pain, unspecified (4) UTI (urinary tract infection) Qualifiers: Urinary tract infection type: site unspecified Hematuria presence: without hematuria Qualified Code(s): N39.0 - Urinary tract infection, site not specified
[2017-12-03] MEDS: Senna/Docusate Sodium 8.6/50 MG Tablet PO SCH ×2 (10:19→21:56)
[2017-12-03 10:55] LABS: Baso # (Auto) 0.1 th/mm3 (0.0-0.2); Baso % (Auto) 0.7 % (0.0-2.0); Eos % (Auto) 0.4 % (0.0-4.0); Hematocrit 42.8 % (35.0-46.0); Hemoglobin 14.4 gm/dL (11.6-15.3); Lymph # (Auto) 1.3 th/mm3 (1.0-4.8); Lymph % (Auto) 11.2 % (9.0-44.0); Mean Corpuscular HGB Conc 33.8 % (32.0-36.0); Mean Corpuscular Hemoglobin 30.6 pg (27.0-34.0); Mean Corpuscular Volume 90.8 fL (80.0-100.0); Mean Platelet Volume 7.6 fL (7.0-11.0); Mono # (Auto) 0.8 th/mm3 (0.0-0.9); Mono % (Auto) 7.3 % (0.0-8.0); Neut # (Auto) 9.1 th/mm3 (1.8-7.7); Neut % (Auto) 80.4 % (16.0-70.0); Platelet Count 325 th/mm3 (150-450); Red Blood Count 4.72 mil/mm3 (4.00-5.30); Red Cell Distribution Width 14.2 % (11.6-17.2); White Blood Count 11.3 th/mm3 (4.0-11.0)
[2017-12-03 11:06] LABS: Potassium 3.6 meq/L (3.5-5.1)
[2017-12-03 11:08] LABS: Calcium 8.7 mg/dL (8.5-10.1)
[2017-12-03 11:09] LABS: Carbon Dioxide 24.6 meq/L (21.0-32.0)
--- NOTE | 2017-12-03 15:19 | P.CON ---
History of Present Illness Reason for Consult: Large hiatal hernia with nausea and vomiting Primary Care Provider: Opal Rossi MD Family Provider: Opal Rossi MD Chief Complaint: Abdominal pain History of Present Illness: Patient is an 87-year-old female who presented with increased abdominal pain with distended hiatal hernia and persistent severe upper abdominal pain, with nausea and vomiting. Patient has been found to have quite large hiatal hernia and no other major medical problems at this time. She reports that she underwent colonoscopy a number of years ago by Dr. Carito Bailey but does not recall having an upper endoscopy.. Review of Systems All other systems reviewed negative except as stated in HPI PMFSH - History History Provided By: Patient - Medical History Medical History: Medical History (Last Reviewed 12/02/17 @ 19:31 by Riddhi Strickland MD) History of depression History of high cholesterol - Surgical History Surgical History: Surgical History (Last Updated 12/03/17 @ 09:31 by ELROY Sullivan) History of cataract surgery - Family History Family History: Family History (Last Updated 12/03/17 @ 09:31 by ELROY Sullivan) Father History of myocardial infarction - Tobacco History Second Hand Smoke Exposure: No Tobacco Use In Past 30 Days: No Smoking Status: Former smoker Number of Pack Years (if former smoker): 10 (Patient states that she quit smoking 50 years ago) - Alcohol History How Often Do You Have a Drink Containing Alcohol: Never - Substance Use History Substance History: No History of Abuse - Travel History Recent Travel in the [place] Within the Last 8 Weeks: Yes Recent Travel Out of the Country Within the Last 8 Weeks: No - Immunization History Tetanus Immunization: <5 Years Hx Influenza Vaccine This Season: Yes Medications and Allergies Active Medications: Active Medications Al Hydroxide/Mg Hydroxide (Milk Of Magnellie Liq) 30 ml PO Q12H PRN PRN Reason: Mild Constipation Bisacodyl (Dulcolax Supp) 10 mg RECTAL DAILY PRN PRN Reason: SEVERE CONSITIPATION Sodium Chloride (Ns Inj) 1,000 mls @ 100 mls/hr IV.CONT .Q10H PAPO Last Admin: 12/03/17 05:18 Dose: 100 mls/hr Sodium Chloride (Ns Inj) 500 mls @ 0 mls/hr IV.SIG BOLUS PAPO Last Infusion: 08/31/18 22:18 Dose: Infused Ceftriaxone Sodium 1,000 mg/ (Sodium Chloride) 100 mls @ 200 mls/hr IV.SIG Q24H PAPO Lactulose (Lactulose Liq) 30 ml PO DAILY PRN PRN Reason: SEVERE CONSITIPATION Morphine Sulfate (Morphine Inj) 2 mg IV.PUSH Q3H PRN PRN Reason: ABDOMINAL PAIN Last Admin: 12/03/17 10:10 Dose: 2 mg Ondansetron HCl (Zofran Inj) 4 mg IV.PUSH Q6H PRN PRN Reason: NAUSEA OR VOMITING Last Admin: 12/03/17 04:10 Dose: 4 mg Senna/Docusate Sodium (Marian-Colace) 1 tab PO BID PAPO Last Admin: 12/03/17 10:19 Dose: Not Given Sennosides (Senokot) 17.2 mg PO Q12H PRN PRN Reason: Moderate Constipation Sodium Chloride (Ns Flush) 2 ml IV.FLUSH PRN PRN PRN Reason: FLUSH AFTER USING IV ACCESS Allergies Allergy/AdvReac Type Severity Reaction Status Date / Time No Known Allergies Allergy Verified 12/02/17 18:46 Home Medications Medication Instructions Recorded Confirmed Type ezetimibe [Zetia] 10 mg PO DAILY 12/02/17 12/02/17 History lovastatin 80 mg PO QPM 12/02/17 12/02/17 History mirtazapine 15 mg PO DAILY 12/02/17 12/02/17 History Physical Exam Vital signs: Vital Signs 12/02/17 18:46 12/02/17 20:00 12/02/17 20:50 Temperature 97.7 F Pulse Rate 115 H 92 H Respiratory Rate 18 18 18 Blood Pressure 199/97 H 145/82 H Pulse Oximetry 96 98 12/02/17 22:25 12/03/17 00:28 12/03/17 07:00 Temperature 97.7 F Pulse Rate 94 H 97 H Respiratory Rate 18 18 18 Blood Pressure 158/78 H 170/83 H Pulse Oximetry 96 93 L 12/03/17 07:33 12/03/17 10:12 12/03/17 11:15 Temperature 97.8 F 98 F Pulse Rate 92 H 91 H Respiratory Rate 20 18 20 Blood Pressure 146/73 H 138/63 Pulse Oximetry 92 L 93 L 12/03/17 15:04 Temperature 97.6 F Pulse Rate 92 H Respiratory Rate 20 Blood Pressure 134/70 Pulse Oximetry 93 L Intake & Output 12/02/17 12/03/17 12/03/17 18:59 06:59 18:59 Intake Total 1600 / 1600 Output Total 300 / 300 Balance 1600 / 1600 -300 / -300 Weight 66.8 kg 61.1 kg Intake: IV 1600 / 1600 NS Inj 1,000 ML @ 100 mls/hr IV 1000 / 1000 .CONT .Q10H PAPO Rx#:[id number] NS Inj 500 ML @ Wide Open IV. 500 / 500 SIG BOLUS PAPO Rx#:[id number] Rocephin Inj 1,000 MG In NS Inj 100 / 100 100 ML @ 200 mls/hr IV.SIG ONCE ONE Rx#:[id number] Oral 0 / 0 Output: Urine 300 / 300 Other: # Voids 1 Date of Last Bowel Movement 12/02/17 Weight On Admission 61.4 kg - Constitutional mild distress - Routine HEENT Exam Head: Present: normocephalic, atraumatic ENT: Present: mucous membranes moist - Routine Neck Exam Present: supple - Routine Respiratory Exam Present: CTA bilaterally - Routine Cardiovascular Exam Present: RRR - Routine Abdominal Exam Present: soft, normoactive bowel sounds, tenderness (Mild across the upper abdomen without guarding) Assessment and Plan - Assessment (1) Abdominal pain Code(s): R10.9 - Unspecified abdominal pain Status: Acute (2) Hiatal hernia Code(s): K44.9 - Diaphragmatic hernia without obstruction or gangrene Status: Acute Plan: Discussed with the patient; will trial clamping NG tube and give patient sips of clears. If she is able to tolerate a diet would potentially send her home and have surgery as an outpatient within the next week or 2. If her symptoms worsen or she is unable to tolerate p.o.'s, she will require surgery during this hospital stay. If she requires advanced laparoscopic upper GI surgery, she will require transfer to the main campus. She understands and is agreeable to this. (1) Abdominal pain Qualifiers: Abdominal location: upper abdomen, unspecified Qualified Code(s): R10.10 - Upper abdominal pain, unspecified
--- NOTE | 2017-12-03 16:32 | ECG ---
Date Performed: 12/02/2017 Time Performed: 19:17:42 PTAGE: 87 years EKG: SINUS TACHYCARDIA VERTICAL QRS AXIS SMALL INFERIOR Q WAVES OF UNDETERMINED SIGNIFICANCE Com pared to previous tracing, Q waves slightly more prominent inferiorly, otherwise no significant fernandes e. ABNORMAL ECG PREVIOUS TRACING : 07/20/2011 20.04.48 DOCTOR: Oscar Andrade Interpretating Date/Time 12/03/2017 16:32:03
[2017-12-04] MEDS: Sod Chloride 0.9% Inj 1,000 ML IV.CONT SCH ×3 (02:30→22:53)
[2017-12-04 06:28] LABS: Baso # (Auto) 0.1 th/mm3 (0.0-0.2); Baso % (Auto) 0.5 % (0.0-2.0); Eos # (Auto) 0.2 th/mm3 (0.0-0.4); Eos % (Auto) 1.6 % (0.0-4.0); Hematocrit 40.6 % (35.0-46.0); Hemoglobin 13.7 gm/dL (11.6-15.3); Lymph # (Auto) 1.5 th/mm3 (1.0-4.8); Lymph % (Auto) 12.8 % (9.0-44.0); Mean Corpuscular HGB Conc 33.8 % (32.0-36.0); Mean Corpuscular Hemoglobin 30.9 pg (27.0-34.0); Mean Corpuscular Volume 91.3 fL (80.0-100.0); Mean Platelet Volume 7.5 fL (7.0-11.0); Mono # (Auto) 0.9 th/mm3 (0.0-0.9); Mono % (Auto) 8.3 % (0.0-8.0); Neut # (Auto) 8.7 th/mm3 (1.8-7.7); Neut % (Auto) 76.8 % (16.0-70.0); Platelet Count 277 th/mm3 (150-450); Red Blood Count 4.44 mil/mm3 (4.00-5.30); White Blood Count 11.4 th/mm3 (4.0-11.0)
[2017-12-04 06:39] LABS: Chloride 111 meq/L (98-107); Potassium 3.5 meq/L (3.5-5.1); Sodium 144 meq/L (136-145)
[2017-12-04 06:43] LABS: Calcium 8.1 mg/dL (8.5-10.1)
[2017-12-04 07:02] LABS: Alanine Aminotransferase 22 U/L (10-53); Albumin 3.1 g/dL (3.4-5.0); Alkaline Phosphatase 74 U/L (45-117); Anion Gap 10 meq/L (5-15); Aspartate Aminotransferase 19 U/L (15-37); Blood Urea Nitrogen 11 mg/dL (7-18); Carbon Dioxide 23.1 meq/L (21.0-32.0); Glomerular Filtration Rate 68 mL/min (>89); Glucose,Random 97 mg/dL (74-106); Total Protein 6.6 g/dL (6.4-8.2)
--- NOTE | 2017-12-04 08:42 | P.PN ---
Subjective Interval history: 87-year-old female who is seen and examined today for follow-up on abdominal pain with distended hiatal hernia. Patient is doing much better today. NG tube has been clamped overnight without any worsening of her symptoms. General surgery had evaluated patient and recommended clamping the NG tube and advancing diet. If patient tolerates diet she can be discharged home with outpatient follow-up to schedule surgery. Patient remains afebrile. Physical Exam Vital signs: Vital Signs 12/03/17 10:12 12/03/17 11:15 12/03/17 15:04 Temperature 98 F 97.6 F Pulse Rate 91 H 92 H Respiratory Rate 18 20 20 Blood Pressure 138/63 134/70 Pulse Oximetry 93 L 93 L 12/03/17 20:00 12/04/17 00:00 12/04/17 07:38 Temperature 99.4 F 98.8 F 98.4 F Pulse Rate 90 95 H 93 H Respiratory Rate 16 16 20 Blood Pressure 141/66 H 143/77 H 160/73 H Pulse Oximetry 94 L 92 L 92 L Intake & Output 12/03/17 12/04/17 12/04/17 18:59 06:59 18:59 Intake Total 1100 / 1100 Output Total 300 / 300 Balance -300 / -300 1100 / 1100 Weight 61.1 kg Intake: IV 1100 / 1100 NS Inj 1,000 ML @ 100 mls/hr IV 1000 / 1000 .CONT .Q10H [facility] Rx#:[id number] Rocephin Inj 1,000 MG In NS Inj 100 / 100 100 ML @ 200 mls/hr IV.SIG Q24H [facility] Rx#:[id number] Output: Urine 300 / 300 Other: # Voids 3 Date of Last Bowel Movement 11/29/17 Narrative: GENERAL: Well-developed, well-nourished, in no acute distress. alert and orientated HEENT: Head is normocephalic without any lesions or masses noted. Facial features are symmetric. Eyes: Extraocular muscles are intact. Conjunctivae were clear. NG tube is clamped NECK: Supple without any masses. Trachea midline no deviation. No JVD, CARDIAC: Regular rhythm, regular rate. S1/S2 are heard. No murmurs gallops or rubs. LUNGS: Clear to auscultation bilaterally. No wheeze, rhonchi or rales. No use of accessory muscles on inspiration or expiration. ABDOMEN: Soft, mild epigastric tenderness. Nondistended. Bowel sounds heard in all 4 quadrants. No organomegaly or masses. Negative rebound, negative guarding. EXTREMITIES: No edema, pulses are equal bilaterally. No cyanosis or clubbing NEUROLOGY: Mood and affect appear appropriate. Cranial nerves II through XII grossly intact. Moving all extremities, speech clear Results - Labs CBC & Chem 7: 12/04/17 05:30 12/04/17 05:20 Laboratory Results - last 24 hr 12/03/17 12/03/17 12/03/17 10:45 10:45 10:45 CBC w Diff Auto diff final WBC 11.3 H RBC 4.72 Hgb 14.4 Hct 42.8 MCV 90.8 MCH 30.6 MCHC 33.8 RDW 14.2 Plt Count 325 MPV 7.6 Neut % (Auto) 80.4 H Lymph % (Auto) 11.2 [place] % (Auto) 7.3 Eos % (Auto) 0.4 Baso % (Auto) 0.7 Neut # (Auto) 9.1 H Lymph # (Auto) 1.3 [place] # (Auto) 0.8 Eos # (Auto) 0.0 Baso # (Auto) 0.1 WBC Differential . Differential Comment . Sodium 142 Potassium 3.6 Chloride 108 H Carbon Dioxide 24.6 Anion Gap 9 BUN 15 Creatinine 0.93 Estimated GFR 57 L Random Glucose 100 Lactic Acid 1.4 Calcium 8.7 Total Bilirubin AST ALT Alkaline Phosphatase Total Protein Albumin 12/04/17 12/04/17 05:20 05:30 CBC w Diff Auto diff final WBC 11.4 H RBC 4.44 Hgb 13.7 Hct 40.6 MCV 91.3 MCH 30.9 MCHC 33.8 RDW 14.0 Plt Count 277 MPV 7.5 Neut % (Auto) 76.8 H Lymph % (Auto) 12.8 [place] % (Auto) 8.3 H Eos % (Auto) 1.6 Baso % (Auto) 0.5 Neut # (Auto) 8.7 H Lymph # (Auto) 1.5 [place] # (Auto) 0.9 Eos # (Auto) 0.2 Baso # (Auto) 0.1 WBC Differential . Differential Comment . Sodium 144 Potassium 3.5 Chloride 111 H Carbon Dioxide 23.1 Anion Gap 10 BUN 11 Creatinine 0.80 Estimated GFR 68 L Random Glucose 97 Lactic Acid Calcium 8.1 L Total Bilirubin 0.4 AST 19 ALT 22 Alkaline Phosphatase 74 Total Protein 6.6 D Albumin 3.1 L D Microbiology 12/02/17 23:15 Blood - Peripheral Aerobic Blood Culture - Preliminary No growth in 1 day 12/02/17 23:15 Blood - Peripheral Anaerobic Blood Culture - Preliminary No growth in 1 day 12/02/17 23:15 Blood - Peripheral Aerobic Blood Culture - Preliminary No growth in 1 day 12/02/17 23:15 Blood - Peripheral Anaerobic Blood Culture - Preliminary No growth in 1 day 12/02/17 22:10 Clean Catch Urine Urine Culture - Preliminary No growth. Assessment and Plan - Assessment (1) Sepsis Code(s): A41.9 - Sepsis, unspecified organism Status: Acute (2) Abdominal pain Code(s): R10.9 - Unspecified abdominal pain Status: Acute (3) Hiatal hernia Code(s): K44.9 - Diaphragmatic hernia without obstruction or gangrene Status: Acute (4) UTI (urinary tract infection) Code(s): N39.0 - Urinary tract infection, site not specified Status: Acute - Plan Sepsis, resolved -Patient met criteria with leukocytosis, tachycardia, lactic acidosis, urinary tract infection -Chest x-ray only indicated large hiatal hernia -CT the abdomen indicated mild left pleural effusion with atelectasis and/or consolidation left lower lobe -Blood cultures are negative for 1 day -Urine culture shows no growth -Patient continued on Rocephin -Follow-up CBC, lactic acid level Large distended hiatal hernia with inflammatory findings -Likely the etiology of the patient's chronic abdominal pain -NG tube has been clamped since last night -General surgery consultation for further recommendations, who indicated to clamp the NG tube, advance diet and if patient tolerates diet can schedule outpatient surgery. If patient does not tolerate diet patient will need to be transferred to the main for surgical intervention. -Pain control Hyperlipidemia -Resume home medication Depression -Resume home medication DVT prevention -Sequential compression devices (2) Abdominal pain Qualifiers: Abdominal location: upper abdomen, unspecified Qualified Code(s): R10.10 - Upper abdominal pain, unspecified (4) UTI (urinary tract infection) Qualifiers: Urinary tract infection type: site unspecified Hematuria presence: without hematuria Qualified Code(s): N39.0 - Urinary tract infection, site not specified
[2017-12-04] MEDS: Senna/Docusate Sodium 8.6/50 MG Tablet PO SCH ×2 (08:45→20:14)
[2017-12-04] MEDS: Mirtazapine 15 MG Tablet PO SCH (09:33)
[2017-12-04] MEDS: Morphine Sulfate Inj 2 MG/ML Vial IV.PUSH PRN ×4 (09:33→21:42)
[2017-12-04] MEDS: Ezetimibe 10 MG Tablet PO SCH (09:33)
--- NOTE | 2017-12-04 19:02 | P.PNGS ---
Subjective Patient reports: still having pain Physical Exam Vital signs: Vital Signs 12/03/17 20:00 12/04/17 00:00 12/04/17 07:38 Temperature 99.4 F 98.8 F 98.4 F Pulse Rate 90 95 H 93 H Respiratory Rate 16 16 20 Blood Pressure 141/66 H 143/77 H 160/73 H Pulse Oximetry 94 L 92 L 92 L 12/04/17 11:28 12/04/17 15:25 Temperature 97.4 F L 98.6 F Pulse Rate 97 H 95 H Respiratory Rate 20 20 Blood Pressure 144/72 H 140/70 Pulse Oximetry 92 L 92 L Intake & Output 12/04/17 12/04/17 12/05/17 06:59 18:59 06:59 Intake Total 1100 / 1100 1900 / 1900 Balance 1100 / 1100 1900 / 1900 Weight 61.1 kg Intake: IV 1100 / 1100 1000 / 1000 NS Inj 1,000 ML @ 100 mls/hr IV 1000 / 1000 1000 / 1000 .CONT .Q10H [facility] Rx#:[id number] Rocephin Inj 1,000 MG In NS Inj 100 / 100 100 ML @ 200 mls/hr IV.SIG Q24H [facility] Rx#:[id number] Oral 900 / 900 Other: # Voids 3 Date of Last Bowel Movement 11/29/17 12/04/17 # Bowel Movements 2 - Constitutional no acute distress - Routine Abdominal Exam Present: soft Assessment and Plan - Assessment (1) Abdominal pain Code(s): R10.9 - Unspecified abdominal pain Status: Acute (2) Hiatal hernia Code(s): K44.9 - Diaphragmatic hernia without obstruction or gangrene Status: Acute - Plan 87yo female with large HH, symptomatic. - patient with dysphagia - place NG to LIS, continue IVF - will likely need surgery this hospitalization (1) Abdominal pain Qualifiers: Abdominal location: upper abdomen, unspecified Qualified Code(s): R10.10 - Upper abdominal pain, unspecified
[2017-12-05] MEDS: Morphine Sulfate Inj 2 MG/ML Vial IV.PUSH PRN ×4 (04:40→20:59)
--- NOTE | 2017-12-05 07:58 | P.PN ---
Subjective Interval history: 87-year-old female who is seen and examined today for follow-up on painful hiatal hernia. Patient had NG tube clamped yesterday and was tolerating liquids. She stated that she did have some vomiting yesterday. General surgery requesting the patient be transferred to the [facility] to have surgery during this hospitalization. Patient also complaining about right hip and back pain. Blood pressure mildly elevated. Patient remains afebrile. Physical Exam Vital signs: Vital Signs 12/04/17 11:28 12/04/17 15:25 12/04/17 20:00 Temperature 97.4 F L 98.6 F 98.8 F Pulse Rate 97 H 95 H 95 H Respiratory Rate 20 20 16 Blood Pressure 144/72 H 140/70 155/72 H Pulse Oximetry 92 L 92 L 91 L 12/05/17 00:00 Temperature 98.8 F Pulse Rate 110 H Respiratory Rate 16 Blood Pressure 155/78 H Pulse Oximetry 92 L Intake & Output 12/04/17 12/05/17 12/05/17 18:59 06:59 18:59 Intake Total 1900 / 1900 1300 / 1300 Balance 1900 / 1900 1300 / 1300 Intake: IV 1000 / 1000 1100 / 1100 NS Inj 1,000 ML @ 100 mls/hr IV 1000 / 1000 1000 / 1000 .CONT .Q10H [facility] Rx#:[id number] Rocephin Inj 1,000 MG In NS Inj 100 / 100 100 ML @ 200 mls/hr IV.SIG Q24H [facility] Rx#:[id number] Oral 900 / 900 200 / 200 Other: # Voids 3 3 Date of Last Bowel Movement 12/04/17 12/04/17 # Bowel Movements 2 Narrative: GENERAL: Well-developed, well-nourished, in no acute distress. alert and orientated HEENT: Head is normocephalic without any lesions or masses noted. Facial features are symmetric. Eyes: Extraocular muscles are intact. Conjunctivae were clear. NECK: Supple without any masses. Trachea midline no deviation. No JVD, CARDIAC: Regular rhythm, regular rate. S1/S2 are heard. No murmurs gallops or rubs. LUNGS: Clear to auscultation bilaterally. No wheeze, rhonchi or rales. No use of accessory muscles on inspiration or expiration. ABDOMEN: Soft, mild epigastric tenderness. Nondistended. Bowel sounds heard in all 4 quadrants. No organomegaly or masses. Negative rebound, negative guarding. EXTREMITIES: No edema, pulses are equal bilaterally. No cyanosis or clubbing NEUROLOGY: Mood and affect appear appropriate. Cranial nerves II through XII grossly intact. Moving all extremities, speech clear Results - Labs CBC & Chem 7: 12/04/17 05:30 12/04/17 05:20 Microbiology 12/02/17 23:15 Blood - Peripheral Aerobic Blood Culture - Preliminary No growth in 2 days 12/02/17 23:15 Blood - Peripheral Anaerobic Blood Culture - Preliminary No growth in 2 days 12/02/17 23:15 Blood - Peripheral Aerobic Blood Culture - Preliminary No growth in 2 days 12/02/17 23:15 Blood - Peripheral Anaerobic Blood Culture - Preliminary No growth in 2 days 12/02/17 22:10 Clean Catch Urine Urine Culture - Final 50-100,000 cfu/mL mixed meryl (probable contaminants ) Assessment and Plan - Assessment (1) Sepsis Code(s): A41.9 - Sepsis, unspecified organism Status: Acute (2) Abdominal pain Code(s): R10.9 - Unspecified abdominal pain Status: Acute (3) Hiatal hernia Code(s): K44.9 - Diaphragmatic hernia without obstruction or gangrene Status: Acute (4) UTI (urinary tract infection) Code(s): N39.0 - Urinary tract infection, site not specified Status: Acute - Plan Sepsis, resolved -Patient met criteria with leukocytosis, tachycardia, lactic acidosis, urinary tract infection -Chest x-ray only indicated large hiatal hernia -CT the abdomen indicated mild left pleural effusion with atelectasis and/or consolidation left lower lobe -Blood cultures are negative for 2 day -Urine culture shows no growth -Patient continued on Rocephin -Follow-up lactic acid level was normal. -Follow-up CBC shows improvement of WBC count Large distended hiatal hernia with inflammatory findings -Likely the etiology of the patient's chronic abdominal pain -NG tube came out last night. -General surgery recommended patient be transferred to the [facility] to have Lance fundoplication done this hospitalization. -Pain control Back pain with right hip/leg pain -Continue pain control -Start Flexeril hyperlipidemia -Resume home medication Depression -Resume home medication DVT prevention -Sequential compression devices (2) Abdominal pain Qualifiers: Abdominal location: upper abdomen, unspecified Qualified Code(s): R10.10 - Upper abdominal pain, unspecified (4) UTI (urinary tract infection) Qualifiers: Urinary tract infection type: site unspecified Hematuria presence: without hematuria Qualified Code(s): N39.0 - Urinary tract infection, site not specified
[2017-12-05] MEDS: Ezetimibe 10 MG Tablet PO SCH (09:00)
[2017-12-05] MEDS: Mirtazapine 15 MG Tablet PO SCH (09:00)
[2017-12-05] MEDS: Senna/Docusate Sodium 8.6/50 MG Tablet PO SCH ×2 (09:00→20:56)
[2017-12-05] MEDS: Sod Chloride 0.9% Inj 1,000 ML IV.CONT SCH ×2 (09:07→20:54)
--- NOTE | 2017-12-05 11:37 | P.PNGS ---
Subjective Interval history: Resting in bed Not able to tolerate clears "sneezed" NGT out Physical Exam Vital signs: Vital Signs 12/04/17 15:25 12/04/17 20:00 12/05/17 00:00 Temperature 98.6 F 98.8 F 98.8 F Pulse Rate 95 H 95 H 110 H Respiratory Rate 20 16 16 Blood Pressure 140/70 155/72 H 155/78 H Pulse Oximetry 92 L 91 L 92 L 12/05/17 08:00 Temperature 99.2 F Pulse Rate 104 H Respiratory Rate 18 Blood Pressure 121/66 Pulse Oximetry 95 Intake & Output 12/04/17 12/05/17 12/05/17 18:59 06:59 18:59 Intake Total 1900 / 1900 1300 / 1300 1000 / 1000 Balance 1900 / 1900 1300 / 1300 1000 / 1000 Intake: IV 1000 / 1000 1100 / 1100 1000 / 1000 NS Inj 1,000 ML @ 100 mls/hr IV 1000 / 1000 1000 / 1000 1000 / 1000 .CONT .Q10H [facility] Rx#:[id number] Rocephin Inj 1,000 MG In NS Inj 100 / 100 100 ML @ 200 mls/hr IV.SIG Q24H [facility] Rx#:[id number] Oral 900 / 900 200 / 200 Other: # Voids 3 3 Date of Last Bowel Movement 12/04/17 12/04/17 # Bowel Movements 2 Narrative: Alert and awake Abd: Soft non tender Assessment and Plan - Assessment (1) Abdominal pain Code(s): R10.9 - Unspecified abdominal pain Status: Acute (2) Hiatal hernia Code(s): K44.9 - Diaphragmatic hernia without obstruction or gangrene Status: Acute Plan: 87 year old female with large hiatal hernia -Not able to tolerate clears -Transfer to the main for surgical intervention -Timing to be determined Patient needs urgent surgery Discussed risks with her, including but not limited to: bleeding, infection, esophageal perforation, pleural effusion, bloating, recurrence of hernia, and need for reoperation. She vocalizes understanding and agrees to proceed. The exam, history, and the medical decision-making described in the above note were completed with the assistance of the mid-level provider. I reviewed and agree with the findings presented. I attest that I had a [id number] encounter with the patient on the same day, and personally performed and documented my assessment and findings in the medical record. (1) Abdominal pain Qualifiers: Abdominal location: upper abdomen, unspecified Qualified Code(s): R10.10 - Upper abdominal pain, unspecified
[2017-12-06] MEDS: Sod Chloride 0.9% Inj 1,000 ML IV.CONT SCH ×2 (03:16→13:50)
[2017-12-06] MEDS ORDERED: Chlorhexidine Gluconate 2% 1 Pack (2 Cloths) TOPICAL ONE (04:39)
[2017-12-06] MEDS ORDERED: Sodium Chlor 0.9% Inj 500 ML IV.SIG SCH (05:00)
[2017-12-06] MEDS: Morphine Sulfate Inj 2 MG/ML Vial IV.PUSH PRN ×3 (05:19→22:15)
[2017-12-06 07:10] LABS: Baso % (Auto) 0.4 % (0.0-2.0); Eos # (Auto) 0.2 th/mm3 (0.0-0.4); Hematocrit 40.5 % (35.0-46.0); Hemoglobin 13.5 gm/dL (11.6-15.3); Lymph # (Auto) 1.3 th/mm3 (1.0-4.8); Lymph % (Auto) 12.7 % (9.0-44.0); Mean Corpuscular HGB Conc 33.3 % (32.0-36.0); Mean Corpuscular Hemoglobin 30.6 pg (27.0-34.0); Mean Corpuscular Volume 91.8 fL (80.0-100.0); Mean Platelet Volume 7.7 fL (7.0-11.0); Mono % (Auto) 9.4 % (0.0-8.0); Neut # (Auto) 7.9 th/mm3 (1.8-7.7); Neut % (Auto) 75.5 % (16.0-70.0); Platelet Count 256 th/mm3 (150-450); Red Blood Count 4.42 mil/mm3 (4.00-5.30); White Blood Count 10.4 th/mm3 (4.0-11.0)
[2017-12-06 07:34] LABS: Anion Gap 11 meq/L (5-15); Blood Urea Nitrogen 5 mg/dL (7-18); Carbon Dioxide 22.6 meq/L (21.0-32.0); Chloride 108 meq/L (98-107); Glomerular Filtration Rate Greater Than 89 mL/min (>89); Glucose,Random 71 mg/dL (74-106); Potassium 3.3 meq/L (3.5-5.1); Sodium 142 meq/L (136-145)
[2017-12-06] MEDS: Senna/Docusate Sodium 8.6/50 MG Tablet PO SCH ×2 (08:23→21:38)
[2017-12-06] MEDS: Mirtazapine 15 MG Tablet PO SCH (08:24)
[2017-12-06] MEDS: Ezetimibe 10 MG Tablet PO SCH (08:24)
--- NOTE | 2017-12-06 10:11 | P.PNGS ---
Subjective Interval history: Resting in bed; c/o RIGHT hip pain Physical Exam Vital signs: Vital Signs 12/05/17 12:00 12/05/17 16:00 12/05/17 20:00 Temperature 97.9 F 98.1 F 97.3 F L Pulse Rate 101 H 96 H 104 H Respiratory Rate 18 18 20 Blood Pressure 156/67 H 135/72 158/70 H Pulse Oximetry 92 L 91 L 94 L 12/06/17 00:00 12/06/17 04:00 12/06/17 08:00 Temperature 98.2 F 99 F 99.2 F Pulse Rate 101 H 103 H 110 H Respiratory Rate 20 20 19 Blood Pressure 164/83 H 178/87 H 124/60 Pulse Oximetry 91 L 93 L 94 L Intake & Output 12/05/17 12/06/17 12/06/17 18:59 06:59 18:59 Intake Total 1550 / 1550 1081 / 1081 1000 / 1000 Output Total 600 / 600 Balance 950 / 950 1081 / 1081 1000 / 1000 Intake: IV 1000 / 1000 1081 / 1081 1000 / 1000 NS Inj 1,000 ML @ 100 mls/hr IV 1000 / 1000 981 / 981 1000 / 1000 .CONT .Q10H [facility] Rx#:[id number] Rocephin Inj 1,000 MG In NS Inj 100 / 100 100 ML @ 200 mls/hr IV.SIG Q24H [facility] Rx#:[id number] Oral 550 / 550 Output: Urine 600 / 600 Other: # Voids 2 3 Date of Last Bowel Movement 12/04/17 12/04/17 11/03/17 Narrative: Alert and awake Abd: soft non tender - Routine Respiratory Exam Present: CTA bilaterally - Routine Abdominal Exam Present: tenderness (minimal in the epigastrium) Assessment and Plan - Assessment (1) Abdominal pain Code(s): R10.9 - Unspecified abdominal pain Status: Acute (2) Hiatal hernia Code(s): K44.9 - Diaphragmatic hernia without obstruction or gangrene Status: Acute Plan: 87 year old female with large hiatal hernia -Will plan for surgical intervention tomorrow afternoon with reduction and repair of hiatal hernia; G tube placement; possible partial fundoplication -Obtain consents -Sips of clear liquids today; NPO after MN -Labs today Abdomen is soft and nontender at present The exam, history, and the medical decision-making described in the above note were completed with the assistance of the mid-level provider. I reviewed and agree with the findings presented. I attest that I had a [id number] encounter with the patient on the same day, and personally performed and documented my assessment and findings in the medical record. (1) Abdominal pain Qualifiers: Abdominal location: upper abdomen, unspecified Qualified Code(s): R10.10 - Upper abdominal pain, unspecified
[2017-12-06] MEDS ORDERED: Potassium Chlor 20 mEq Premix 20 MEQ/100 ML PIGGYBACK IV.SIG SCH (11:49)
--- NOTE | 2017-12-06 11:53 | P.PNIM ---
Subjective Interval history: Patient stated that she feels a lot better now. Denies any nausea or vomiting. She states that her epigastric area she does feel a "weird" sensation. Otherwise she has no other complaints. Physical Exam Vital signs: Vital Signs 12/05/17 12:00 12/05/17 16:00 12/05/17 20:00 Temperature 97.9 F 98.1 F 97.3 F L Pulse Rate 101 H 96 H 104 H Respiratory Rate 18 18 20 Blood Pressure 156/67 H 135/72 158/70 H Pulse Oximetry 92 L 91 L 94 L 12/06/17 00:00 12/06/17 04:00 12/06/17 08:00 Temperature 98.2 F 99 F 99.2 F Pulse Rate 101 H 103 H 110 H Respiratory Rate 20 20 19 Blood Pressure 164/83 H 178/87 H 124/60 Pulse Oximetry 91 L 93 L 94 L Intake & Output 12/05/17 12/06/17 12/06/17 18:59 06:59 18:59 Intake Total 1550 / 1550 1081 / 1081 1000 / 1000 Output Total 600 / 600 Balance 950 / 950 1081 / 1081 1000 / 1000 Intake: IV 1000 / 1000 1081 / 1081 1000 / 1000 NS Inj 1,000 ML @ 100 mls/hr IV 1000 / 1000 981 / 981 1000 / 1000 .CONT .Q10H [facility] Rx#:[id number] Rocephin Inj 1,000 MG In NS Inj 100 / 100 100 ML @ 200 mls/hr IV.SIG Q24H [facility] Rx#:[id number] Oral 550 / 550 Output: Urine 600 / 600 Other: # Voids 2 3 Date of Last Bowel Movement 12/04/17 12/04/17 11/03/17 - Constitutional no acute distress - Routine Respiratory Exam Present: CTA bilaterally - Routine Cardiovascular Exam Present: RRR, S1, S2 Comments: no r/m/g - Routine Abdominal Exam Present: soft, normoactive bowel sounds Comments: no TTP . - Routine Extremities Exam Comments: negative edema Results - Labs CBC & Chem 7: 12/06/17 05:54 12/06/17 05:54 Laboratory Results - last 24 hr 12/06/17 12/06/17 05:54 05:54 WBC 10.4 RBC 4.42 Hgb 13.5 Hct 40.5 MCV 91.8 MCH 30.6 MCHC 33.3 RDW 14.0 Plt Count 256 MPV 7.7 Neut % (Auto) 75.5 H Lymph % (Auto) 12.7 [place] % (Auto) 9.4 H Eos % (Auto) 2.0 Baso % (Auto) 0.4 Neut # (Auto) 7.9 H Lymph # (Auto) 1.3 [place] # (Auto) 1.0 H Eos # (Auto) 0.2 Baso # (Auto) 0.0 WBC Differential . Differential Comment Auto diff final Sodium 142 Potassium 3.3 L Chloride 108 H Carbon Dioxide 22.6 Anion Gap 11 BUN 5 L Creatinine 0.62 Estimated GFR Greater than 89 Random Glucose 71 L Calcium 8.0 L Microbiology 12/02/17 23:15 Blood - Peripheral Aerobic Blood Culture - Preliminary No growth in 4 days 12/02/17 23:15 Blood - Peripheral Anaerobic Blood Culture - Preliminary No growth in 4 days 12/02/17 23:15 Blood - Peripheral Aerobic Blood Culture - Preliminary No growth in 4 days 12/02/17 23:15 Blood - Peripheral Anaerobic Blood Culture - Preliminary No growth in 4 days Assessment and Plan - Assessment (1) Sepsis Code(s): A41.9 - Sepsis, unspecified organism Status: Acute (2) Abdominal pain Code(s): R10.9 - Unspecified abdominal pain Status: Acute (3) Hiatal hernia Code(s): K44.9 - Diaphragmatic hernia without obstruction or gangrene Status: Acute (4) UTI (urinary tract infection) Code(s): N39.0 - Urinary tract infection, site not specified Status: Acute - Plan SIRS -Urine cultures and blood cultures are negative. -Chest x-ray only indicated large hiatal hernia -CT the abdomen indicated mild left pleural effusion with atelectasis and/or consolidation left lower lobe -Will DC Rocephin. Monitor off anti-biotic since there is no infectious source. Large distended hiatal hernia with inflammatory findings -Likely the etiology of the patient's chronic abdominal pain -NG tube came out last night. -General surgeon consulted patient scheduled for surgery tomorrow she will have a reduction repair of the hiatal hernia, G-tube placement, possible partial fundoplication. Back pain with right hip/leg pain -Continue pain control -continue Flexeril hyperlipidemia -continue home medication Depression -continue home medication DVT prevention -Sequential compression devices (2) Abdominal pain Qualifiers: Abdominal location: upper abdomen, unspecified Qualified Code(s): R10.10 - Upper abdominal pain, unspecified (4) UTI (urinary tract infection) Qualifiers: Urinary tract infection type: site unspecified Hematuria presence: without hematuria Qualified Code(s): N39.0 - Urinary tract infection, site not specified
[2017-12-06 12:27] LABS: Baso # (Auto) 0.1 th/mm3 (0.0-0.2); Baso % (Auto) 0.4 % (0.0-2.0); Eos # (Auto) 0.2 th/mm3 (0.0-0.4); Eos % (Auto) 1.9 % (0.0-4.0); Hematocrit 41.7 % (35.0-46.0); Hemoglobin 13.8 gm/dL (11.6-15.3); Lymph # (Auto) 1.4 th/mm3 (1.0-4.8); Lymph % (Auto) 10.7 % (9.0-44.0); Mean Corpuscular Hemoglobin 30.8 pg (27.0-34.0); Mean Corpuscular Volume 93.4 fL (80.0-100.0); Mean Platelet Volume 7.2 fL (7.0-11.0); Mono # (Auto) 1.1 th/mm3 (0.0-0.9); Mono % (Auto) 8.8 % (0.0-8.0); Neut # (Auto) 9.9 th/mm3 (1.8-7.7); Neut % (Auto) 78.2 % (16.0-70.0); Platelet Count 269 th/mm3 (150-450); Red Blood Count 4.47 mil/mm3 (4.00-5.30); Red Cell Distribution Width 13.8 % (11.6-17.2); White Blood Count 12.6 th/mm3 (4.0-11.0)
[2017-12-06 12:53] LABS: Calcium 8.3 mg/dL (8.5-10.1); Carbon Dioxide 22.9 meq/L (21.0-32.0); Potassium 3.6 meq/L (3.5-5.1)
[2017-12-06] MEDS: Potassium Chlor 10 mEq Premix 10 MEQ/100 ML PIGGYBACK IV.SIG SCH ×2 (13:30→14:48)
[2017-12-07] MEDS ORDERED: Metoprolol Tartrate 25 MG Tablet PO ONE (03:52)
[2017-12-07] MEDS ORDERED: Chlorhexidine Gluconate 2% 1 Pack (2 Cloths) TOPICAL ONE (03:52)
[2017-12-07] MEDS ORDERED: Sodium Chlor 0.9% Inj 500 ML IV.SIG SCH (04:00)
[2017-12-07] MEDS: Sod Chloride 0.9% Inj 1,000 ML IV.CONT SCH ×4 (05:25→19:05)
[2017-12-07] MEDS: Senna/Docusate Sodium 8.6/50 MG Tablet PO SCH ×2 (10:41→21:45)
[2017-12-07] MEDS: Mirtazapine 15 MG Tablet PO SCH (10:42)
[2017-12-07] MEDS: Ezetimibe 10 MG Tablet PO SCH (10:42)
--- NOTE | 2017-12-07 12:14 | P.PNIM ---
Subjective Interval history: Patient denies any abdominal pain. Denies nausea or vomiting. She stated that she is very nervous about surgery today. Otherwise no acute events. Physical Exam Vital signs: Vital Signs 12/06/17 16:00 12/06/17 20:00 12/06/17 23:30 Temperature 97.9 F 98.1 F Pulse Rate 99 H 97 H Respiratory Rate 17 17 17 Blood Pressure 177/75 H 171/90 H Pulse Oximetry 93 L 96 12/07/17 00:00 12/07/17 04:00 12/07/17 08:00 Temperature 97.8 F 98.0 F 97.8 F Pulse Rate 91 H 105 H 89 Respiratory Rate 17 18 18 Blood Pressure 164/83 H 176/78 H 173/75 H Pulse Oximetry 96 95 94 L Intake & Output 12/06/17 12/07/17 12/07/17 18:59 06:59 18:59 Intake Total 2160 / 2160 500 / 500 Balance 2160 / 2160 500 / 500 Intake: IV 1200 / 1200 500 / 500 NS Inj 1,000 ML @ 100 mls/hr IV 1000 / 1000 .CONT .Q10H [facility] Rx#:[id number] KCl 10 mEq Premix Inj 10 meq In 100 / 100 100 ml @ 100 mls/hr IV.SIG Q1H [facility] Rx#:[id number] Oral 960 / 960 Other: # Voids 3 Date of Last Bowel Movement 11/03/17 12/04/17 12/07/17 - Constitutional no acute distress - Routine HEENT Exam ENT: Present: mucous membranes moist - Routine Respiratory Exam Present: CTA bilaterally - Routine Cardiovascular Exam Present: RRR, S1, S2 Comments: No rubs, murmur, or gallops. - Routine Abdominal Exam Present: soft, normoactive bowel sounds Comments: no TTP. no peritoneal signs. - Routine Extremities Exam Comments: neg edema - Routine Neurological Exam Present: alert, oriented X3 Results - Labs CBC & Chem 7: 12/06/17 11:36 12/06/17 11:36 Laboratory Results - last 24 hr 12/06/17 12/06/17 11:36 11:36 WBC 12.6 H RBC 4.47 Hgb 13.8 Hct 41.7 MCV 93.4 MCH 30.8 MCHC 33.0 RDW 13.8 Plt Count 269 MPV 7.2 Neut % (Auto) 78.2 H Lymph % (Auto) 10.7 Carter % (Auto) 8.8 H Eos % (Auto) 1.9 Baso % (Auto) 0.4 Neut # (Auto) 9.9 H Lymph # (Auto) 1.4 Carter # (Auto) 1.1 H Eos # (Auto) 0.2 Baso # (Auto) 0.1 WBC Differential . Differential Comment Auto diff final Sodium 141 Potassium 3.6 Chloride 107 Carbon Dioxide 22.9 Anion Gap 11 BUN 6 L Creatinine 0.64 Estimated GFR 88 L Random Glucose 67 L Calcium 8.3 L Microbiology 12/02/17 23:15 Blood - Peripheral Aerobic Blood Culture - Final No growth in 5 days 12/02/17 23:15 Blood - Peripheral Anaerobic Blood Culture - Final No growth in 5 days 12/02/17 23:15 Blood - Peripheral Aerobic Blood Culture - Final No growth in 5 days 12/02/17 23:15 Blood - Peripheral Anaerobic Blood Culture - Final No growth in 5 days Assessment and Plan - Assessment (1) Sepsis Code(s): A41.9 - Sepsis, unspecified organism Status: Acute (2) Abdominal pain Code(s): R10.9 - Unspecified abdominal pain Status: Acute (3) Hiatal hernia Code(s): K44.9 - Diaphragmatic hernia without obstruction or gangrene Status: Acute (4) UTI (urinary tract infection) Code(s): N39.0 - Urinary tract infection, site not specified Status: Acute - Plan This is an 87-year-old female presented with abdominal pain and nausea/vomiting Large distended hiatal hernia with inflammatory findings -Likely the etiology of the patient's chronic abdominal pain -NG tube removed on 12/05. -General surgeon consulted patient scheduled for surgery today. she will have a reduction repair of the hiatal hernia, G-tube placement, possible partial fundoplication. SIRS -Urine cultures and blood cultures are negative. -Chest x-ray only indicated large hiatal hernia -CT the abdomen indicated mild left pleural effusion with atelectasis and/or consolidation left lower lobe -Will DC Rocephin. Monitor off anti-biotic since there is no infectious source. Back pain with right hip/leg pain -Continue pain control -continue Flexeril hyperlipidemia -continue home medication Depression -continue home medication DVT prevention -Sequential compression devices (2) Abdominal pain Qualifiers: Abdominal location: upper abdomen, unspecified Qualified Code(s): R10.10 - Upper abdominal pain, unspecified (4) UTI (urinary tract infection) Qualifiers: Urinary tract infection type: site unspecified Hematuria presence: without hematuria Qualified Code(s): N39.0 - Urinary tract infection, site not specified
[2017-12-07] MEDS ORDERED: Bupivacaine/Epinephrine Inj 0.25% 50 ML Vial ONE (13:31)
[2017-12-07] MEDS ORDERED: fentaNYL Citrate Inj 250 MCG/5 ML Ampul ONE (14:04)
[2017-12-07] MEDS ORDERED: Neostigmine Inj 5 MG/5 ML Syringe IV.PUSH ONE (15:00)
[2017-12-07] MEDS ORDERED: Lidocaine PF 1% Inj 5 ML Syringe INFILTRATN ONE (15:00)
[2017-12-07] MEDS ORDERED: Succinylcholine Inj 100 MG/5 ML Syringe IV.PUSH ONE (15:00)
[2017-12-07] MEDS ORDERED: ceFAZolin 2 GM Premix Inj 2 GM/50 ML PIGGYBACK IV.SIG ONE (15:21)
[2017-12-07] MEDS ORDERED: Glycopyrrolate Inj 1 MG/5 ML Syringe IV.PUSH ONE (17:00)
[2017-12-07] MEDS ORDERED: Phenylephrine/NS 1000 MCG/10ML Syringe IV.PUSH ONE (17:00)
[2017-12-07] MEDS ORDERED: Labetalol HCl Inj 100 MG/20 ML Vial IV.CONT ONE (17:00)
--- NOTE | 2017-12-07 17:34 | P.OP ---
- Preoperative Diagnosis (1) Hiatal hernia - Postoperative Diagnosis (1) Hiatal hernia Date of procedure: 12/18/17 Procedure: Laparoscopic hiatal hernia repair with [place] bio-A mesh Partial fundoplication (Toupe) Anesthesia: CARMENA Surgeon: Car Jalloh MD Lead Section Supervisor: Alphonso Espana MD Estimated blood loss (mL): 30 IV fluids (mL): 1,200 Pathology: none sent Operation and Findings: Patient was taken to the operating room and placed on the operating table in the supine position after an adequate level of general endotracheal anesthesia was achieved, the abdomen was prepped and draped in the usual fashion. Timeout was taken, confirming the correct patient, site, and procedure to be performed. Dr. Espana's expertise as a assistant finance director was utilized. He was present from the beginning to the end of the case assisting in all portions of the procedure. It was necessary to have this individual in the room to assist. The surgical procedure was assisted by Dr. Espana. His presence was necessary throughout the case for appropriate retraction, dissection, visualization, and resection of important anatomical structures during the surgical procedure. The skill set of Dr. Espana was medically and surgically necessary to safely complete the surgical procedure. During the case the surgical clinical reviewer was working instrument table and passing instruments to the attending surgeon and assistant finance director. A business development assistant was directly assisting the operating surgeon and involved in the technical aspects of the surgical case. The supraumbilical area was infiltrated with local anesthetic and an incision made in the skin and carried down to the fascia. The fascia was incised and the peritoneal cavity was entered with the surgeon's finger. A balloon trocar was inserted and the balloon inflated. The abdomen was insufflated. The patient was placed in reverse Trendelenburg position. Four 5 mm trocars were placed, with the first of the right of the falciform ligament and the second inferior to this. A nabil flex retractor was utilized to elevate the left lobe of the liver. Two additional 5 mm trocars were placed in the left subcostal region and these each entered the abdominal cavity under direct vision uneventfully. The harmonic scalpel was used to take down the short gastrics and dissect some of the hernia sac out of the chest cavity. The stomach and diaphragm were dissected away with the left klarissa dissected with the harmonic scalpel. The hernia sac was then further reduced and the GE junction identified. Dissection was carried out slightly above the GE junction. The pleura was entered at 2 locations and pleural fluid easily drained into the abdominal cavity and was suctioned. When all serous fluid had been removed, continued dissection created a window after both left and right crura were dissected free. A ferraro's hook was placed through the window and the stomach pulled down. Further dissection up into the mediastinum allowed for the GE junction to be mobilized to a point such that it was below the diaphragm. A 36 and 40 bougie were easily passed down the esophagus into the stomach; the 40 bougie was left in place for the wrap. The greater curvature the stomach was able to be brought around the GE junction and with this mobilization completed, the crura were reapproximated with 2 Ethibond sutures using the suture assist. The [place] bio a 9 x 11 cm mesh was then brought up and trimmed to fit the defect. The mesh was placed into the abdominal cavity and placed behind the stomach. The mesh was fixed at 2 points with the suture assist Ethibond sutures. A partial fundoplication was then accomplished utilizing the suture assist with the Ethibond sutures. 2 sutures were placed on either side of the esophagus creating a 270 wrap. A total of 4 sutures were utilized to complete this partial wrap. With this completed, Evaseal was used to further adhere the mesh to the surrounding tissues. With hemostasis assured, insufflation was discontinued and the upper abdominal abdominal trocars were removed as well as the time and flex retractor. All trocar sites were dry during desufflation. The laparoscope and supraumbilical port were then removed as well. The fascia was closed in the supraumbilical port site with 0 Vicryl suture in simple interrupted fashion. The skin was closed at each of the trocar sites with 4-0 Vicryl in an interrupted buried fashion after injecting the remaining local anesthetic in the supraumbilical incision. All sites were dressed with Steri-Strips. The patient was extubated and taken back to the recovery room in stable condition. Sponge and needle counts were reported to be correct. A stat portable chest x-ray was obtained which demonstrated no evidence of pneumothorax on either side.
[2017-12-07] MEDS ORDERED: *morphine SULFATE 4 MG/ML PERIprocedure ONLY ONE (17:35)
--- NOTE | 2017-12-07 17:37 | XR ---
EXAM DATE: 12/07/2017 5:34 PM EDT AGE/SEX: 87 years / Female INDICATIONS: Shortness of breath status post hiatal hernia repair. CLINICAL DATA: This is the patient's initial encounter. Patient reports that signs and symptoms have been present for 1 day and indicates a pain score of 0/10. MEDICAL/SURGICAL HISTORY: None. None. COMPARISON: [facility], CHEST 1V SINGLE AP, 12/02/2017. . FINDINGS: AP semiupright portable view of the chest demonstrates hypoinflation of the lungs bilaterally. There is linear airspace opacities overlying the right lower lobe consistent with atelectasis. The left hem idiaphragm is obscured likely reflective of left lower lobe atelectasis. The previously noted large p araesophageal hernia is not visualized. CONCLUSION: Right lower lobe atelectasis and likely left lower lobe complete collapse/atelectasis. No evidence of pneumothorax. Electronically signed by: Heather Lima MD 12/07/2017 5:36 PM EDT
[2017-12-08] MEDS: Morphine Sulfate Inj 2 MG/ML Vial IV.PUSH PRN ×3 (02:39→23:42)
[2017-12-08] MEDS: Sod Chloride 0.9% Inj 1,000 ML IV.CONT SCH ×4 (05:20→18:52)
[2017-12-08 05:30] LABS: Hematocrit 40.5 % (35.0-46.0); Hemoglobin 13.2 gm/dL (11.6-15.3); Mean Corpuscular HGB Conc 32.6 % (32.0-36.0); Mean Corpuscular Hemoglobin 30.4 pg (27.0-34.0); Mean Corpuscular Volume 93.3 fL (80.0-100.0); Mean Platelet Volume 7.2 fL (7.0-11.0); Platelet Count 309 th/mm3 (150-450); Red Blood Count 4.34 mil/mm3 (4.00-5.30); Red Cell Distribution Width 14.4 % (11.6-17.2); White Blood Count 13.7 th/mm3 (4.0-11.0)
[2017-12-08 05:31] LABS: Anion Gap 14 meq/L (5-15); Blood Urea Nitrogen 8 mg/dL (7-18); Calcium 7.5 mg/dL (8.5-10.1); Carbon Dioxide 17.8 meq/L (21.0-32.0); Chloride 109 meq/L (98-107); Glomerular Filtration Rate Greater Than 89 mL/min (>89); Glucose,Random 98 mg/dL (74-106); Potassium 3.3 meq/L (3.5-5.1); Sodium 141 meq/L (136-145)
[2017-12-08] MEDS ORDERED: Potassium Bicarbonate 25 MEQ Effervescent Tablet PO ONE (08:40)
[2017-12-08] MEDS: Ezetimibe 10 MG Tablet PO SCH (08:52)
[2017-12-08] MEDS: Mirtazapine 15 MG Tablet PO SCH (08:53)
[2017-12-08] MEDS: Senna/Docusate Sodium 8.6/50 MG Tablet PO SCH ×2 (08:53→21:24)
--- NOTE | 2017-12-08 13:47 | P.PNGS ---
Subjective Interval history: Doing great; feels good; tolerating full liquids Physical Exam Vital signs: Vital Signs 12/07/17 17:09 12/07/17 17:15 12/07/17 17:30 Temperature 97.5 F L Pulse Rate 87 88 83 Respiratory Rate 24 25 H 21 Blood Pressure 173/75 H 158/81 H 167/74 H Pulse Oximetry 90 L 90 L 91 L 12/07/17 17:45 12/07/17 18:00 12/07/17 18:27 Temperature 97.1 F L Pulse Rate 80 69 67 Respiratory Rate 15 16 12 Blood Pressure 154/69 H 157/70 H 142/69 H Pulse Oximetry 92 L 93 L 96 12/07/17 18:44 12/07/17 20:00 12/08/17 00:00 Temperature 97.7 F 97.8 F Pulse Rate 68 72 Respiratory Rate 24 11 L 11 L Blood Pressure 138/63 154/70 H Pulse Oximetry 97 95 12/08/17 04:00 12/08/17 08:00 12/08/17 12:00 Temperature 97.9 F 97.6 F 97.8 F Pulse Rate 87 92 H 90 Respiratory Rate 16 21 19 Blood Pressure 124/60 134/58 L 134/60 Pulse Oximetry 95 94 L 93 L Intake & Output 12/07/17 12/08/17 12/08/17 18:59 06:59 18:59 Intake Total 2200 / 2200 1020 / 1020 Output Total 840 / 840 850 / 850 Balance 1360 / 1360 170 / 170 Weight 73.3 kg Intake: IV 1000 / 1000 1000 / 1000 NS Inj 1,000 ML @ 100 mls/hr IV 1000 / 1000 1000 / 1000 .CONT .Q10H [facility] Rx#:[id number] Oral 0 / 0 20 / 20 Anesthesia Amount 1200 / 1200 Output: Urine 160 / 160 Pleural Fluid 500 / 500 Estimated Blood Loss 30 / 30 Urine Amount (Catheter) 150 / 150 850 / 850 Indwelling Urethral Catheter 150 / 150 850 / 850 Other: Date of Last Bowel Movement 12/07/17 Narrative: Alert and awake Abd: soft minimally tender; Steri strips in place without any drainage - Urinary Catheter Management Indwelling Urethral Catheter Cath placed during this visit: yes, but has since been removed by the nurse Reason for continuing: Hourly intake/output Insertion date: 12/07/17 Insertion time: 15:05 Removal date: 12/08/17 Removal time: 12:15 Assessment and Plan - Assessment (1) Abdominal pain Code(s): R10.9 - Unspecified abdominal pain Status: Acute (2) Hiatal hernia Code(s): K44.9 - Diaphragmatic hernia without obstruction or gangrene Status: Acute Plan: 87 year old female with large hiatal hernia -POD1 reduction and repair hiatal hernia -Full liquids -Decrease fluids -DC Saab -Pain control -Transfer to 7N when bed available Doing remarkably well Passing flatus The exam, history, and the medical decision-making described in the above note were completed with the assistance of the mid-level provider. I reviewed and agree with the findings presented. I attest that I had a [id number] encounter with the patient on the same day, and personally performed and documented my assessment and findings in the medical record. (1) Abdominal pain Qualifiers: Abdominal location: upper abdomen, unspecified Qualified Code(s): R10.10 - Upper abdominal pain, unspecified
--- NOTE | 2017-12-08 17:31 | P.PN ---
Subjective Interval history: Follow-up laparoscopic hiatal hernia repair and partial fundoplication. Patient has mild abdominal pain. Tolerating diet. No gas yet. She has been ambulating Physical Exam Vital signs: Vital Signs 12/07/17 17:30 12/07/17 17:45 12/07/17 18:00 Temperature 97.1 F L Pulse Rate 83 80 69 Respiratory Rate 21 15 16 Blood Pressure 167/74 H 154/69 H 157/70 H Pulse Oximetry 91 L 92 L 93 L 12/07/17 18:27 12/07/17 18:44 12/07/17 20:00 Temperature 97.7 F Pulse Rate 67 68 Respiratory Rate 12 24 11 L Blood Pressure 142/69 H 138/63 Pulse Oximetry 96 97 12/08/17 00:00 12/08/17 04:00 12/08/17 08:00 Temperature 97.8 F 97.9 F 97.6 F Pulse Rate 72 87 92 H Respiratory Rate 11 L 16 21 Blood Pressure 154/70 H 124/60 134/58 L Pulse Oximetry 95 95 94 L 12/08/17 11:36 12/08/17 12:00 12/08/17 16:00 Temperature 97.8 F 97.6 F Pulse Rate 90 95 H Respiratory Rate 20 19 20 Blood Pressure 134/60 156/72 H Pulse Oximetry 93 L 93 L Intake & Output 12/07/17 12/08/17 12/08/17 18:59 06:59 18:59 Intake Total 2200 / 2200 1020 / 1020 1000 / 1000 Output Total 840 / 840 850 / 850 Balance 1360 / 1360 170 / 170 1000 / 1000 Weight 73.3 kg Intake: IV 1000 / 1000 1000 / 1000 1000 / 1000 NS Inj 1,000 ML @ 100 mls/hr IV 1000 / 1000 1000 / 1000 1000 / 1000 .CONT .Q10H [facility] Rx#:[id number] Oral 0 / 0 20 / 20 Anesthesia Amount 1200 / 1200 Output: Urine 160 / 160 Pleural Fluid 500 / 500 Estimated Blood Loss 30 / 30 Urine Amount (Catheter) 150 / 150 850 / 850 Indwelling Urethral Catheter 150 / 150 850 / 850 Other: Date of Last Bowel Movement 12/07/17 Narrative: GENERAL: Well-developed, well-nourished in no distress SKIN: Warm and dry. CARDIOVASCULAR: Regular rate and rhythm. RESPIRATORY: No accessory muscle use. Clear to auscultation. Breath sounds equal bilaterally. GASTROINTESTINAL: Abdomen soft, mildly tender Steri-Strips in place, nondistended. MUSCULOSKELETAL: Extremities without clubbing, cyanosis, or edema. No obvious deformities. SCD NEUROLOGICAL: Awake and alert. No obvious cranial nerve deficits. Motor grossly within normal limits. Five out of 5 muscle strength in the arms and legs. Normal speech. PSYCHIATRIC: Appropriate mood and affect; insight and judgment normal.Alert and awake - Urinary Catheter Management Indwelling Urethral Catheter Cath placed during this visit: yes, but has since been removed by the nurse Reason for continuing: Hourly intake/output Insertion date: 12/07/17 Insertion time: 15:05 Removal date: 12/08/17 Removal time: 12:15 Results - Labs CBC & Chem 7: 12/08/17 04:50 12/08/17 04:50 Laboratory Results - last 24 hr 12/08/17 12/08/17 12/08/17 04:50 04:50 04:50 WBC 13.7 H RBC 4.34 Hgb 13.2 Hct 40.5 MCV 93.3 MCH 30.4 MCHC 32.6 RDW 14.4 Plt Count 309 MPV 7.2 Sodium 141 Potassium 3.3 L Chloride 109 H Carbon Dioxide 17.8 L Anion Gap 14 BUN 8 Creatinine 0.58 Estimated GFR Greater than 89 Random Glucose 98 Calcium 7.5 L D Magnesium 2.1 - Imaging Impressions Abdomen/Pelvis CTA 12/02/17 19:56 CONCLUSION: 1. No significant area of arterial stenosis is seen. 2. Large hiatal hernia with a very distended stomach. There is some mild induration of the fat around the hiatal hernia. It is thought the dilated hiatal hernia is much more likely a source for abdominal pain. 3. Colonic diverticula without inflammatory change. 4. Minimal left pleural effusion with accompanying atelectasis or consolidation at the left lower lobe. Chest X-Ray 12/07/17 17:14 CONCLUSION: Right lower lobe atelectasis and likely left lower lobe complete collapse/ atelectasis. No evidence of pneumothorax. - Procedures laparoscopic hiatal hernia repair and partial fundoplication. Assessment and Plan - Assessment (1) Abdominal pain Code(s): R10.9 - Unspecified abdominal pain Status: Acute (2) Hiatal hernia Code(s): K44.9 - Diaphragmatic hernia without obstruction or gangrene Status: Acute - Plan This is an 87-year-old female presented with abdominal pain and nausea/vomiting Large distended hiatal hernia with inflammatory findings -Likely the etiology of the patient's chronic abdominal pain -NG tube removed on 12/05. -Stable status post surgery. Continue clear liquid diet, IV fluids, mobilization and pain management. SIRS -Urine cultures and blood cultures are negative. -Chest x-ray only indicated large hiatal hernia -CT the abdomen indicated mild left pleural effusion with atelectasis and/or consolidation left lower lobe -Will DC Rocephin. Monitor off anti-biotic since there is no infectious source. Back pain with right hip/leg pain -Continue pain control -continue Flexeril hyperlipidemia -continue home medication Depression -continue home medication DVT prevention -Sequential compression devices and Lovenox Discharge Planning: Stable for transfer to floor (1) Abdominal pain Qualifiers: Abdominal location: upper abdomen, unspecified Qualified Code(s): R10.10 - Upper abdominal pain, unspecified
[2017-12-08] MEDS: Enoxaparin Inj 40 MG/0.4 ML Syringe SQ SCH (18:05)
[2017-12-09] MEDS: Sod Chloride 0.9% Inj 1,000 ML IV.CONT SCH ×3 (05:44→20:10)
[2017-12-09 07:52] LABS: Baso # (Auto) 0.1 th/mm3 (0.0-0.2); Baso % (Auto) 0.8 % (0.0-2.0); Eos # (Auto) 0.1 th/mm3 (0.0-0.4); Eos % (Auto) 1.2 % (0.0-4.0); Hematocrit 39.1 % (35.0-46.0); Hemoglobin 13.3 gm/dL (11.6-15.3); Lymph # (Auto) 1.5 th/mm3 (1.0-4.8); Lymph % (Auto) 13.6 % (9.0-44.0); Mean Corpuscular Hemoglobin 30.5 pg (27.0-34.0); Mean Corpuscular Volume 89.7 fL (80.0-100.0); Mean Platelet Volume 7.6 fL (7.0-11.0); Mono % (Auto) 9.3 % (0.0-8.0); Neut # (Auto) 8.1 th/mm3 (1.8-7.7); Neut % (Auto) 75.1 % (16.0-70.0); Platelet Count 356 th/mm3 (150-450); Red Blood Count 4.35 mil/mm3 (4.00-5.30); Red Cell Distribution Width 13.9 % (11.6-17.2); White Blood Count 10.8 th/mm3 (4.0-11.0)
[2017-12-09 08:20] LABS: Anion Gap 10 meq/L (5-15); Blood Urea Nitrogen 8 mg/dL (7-18); Calcium 7.9 mg/dL (8.5-10.1); Carbon Dioxide 24.9 meq/L (21.0-32.0); Chloride 109 meq/L (98-107); Glomerular Filtration Rate Greater Than 89 mL/min (>89); Glucose,Random 102 mg/dL (74-106); Potassium 3.1 meq/L (3.5-5.1); Sodium 144 meq/L (136-145)
[2017-12-09] MEDS: Enoxaparin Inj 40 MG/0.4 ML Syringe SQ SCH (08:50)
[2017-12-09] MEDS: Mirtazapine 15 MG Tablet PO SCH (08:51)
[2017-12-09] MEDS: Senna/Docusate Sodium 8.6/50 MG Tablet PO SCH ×2 (08:51→22:18)
[2017-12-09] MEDS: Ezetimibe 10 MG Tablet PO SCH (08:51)
--- NOTE | 2017-12-09 09:26 | P.PN ---
Subjective Interval history: Seems a little short of breath, but just wants to go home. Physical Exam Vital signs: Vital Signs 12/08/17 11:36 12/08/17 12:00 12/08/17 16:00 Temperature 97.8 F 97.6 F Pulse Rate 90 95 H Respiratory Rate 20 19 20 Blood Pressure 134/60 156/72 H Pulse Oximetry 93 L 93 L 12/08/17 16:02 12/08/17 20:00 12/09/17 00:00 Temperature 98.5 F 98.0 F Pulse Rate 101 H 105 H Respiratory Rate 20 20 Blood Pressure 158/72 H 125/58 L Pulse Oximetry 97 92 L 93 L Intake & Output 12/08/17 12/09/17 12/09/17 18:59 06:59 18:59 Intake Total 2480 / 2480 1320 / 1320 Output Total 425 / 425 Balance 2054 / 2054 1320 / 1320 Intake: IV 1999 / 1999 1000 / 1000 NS Inj 1,000 ML @ 42 mls/hr IV. 1999 / 1999 1000 / 1000 CONT .[id number] [facility] Rx#:[id number] Oral 480 / 480 320 / 320 Output: Urine 425 / 425 Other: # Voids 2 3 Date of Last Bowel Movement 12/07/17 # Bowel Movements 0 - Constitutional mild distress - Routine Respiratory Exam Present: accessory muscle use, CTA bilaterally - Routine Cardiovascular Exam Present: RRR - Routine Abdominal Exam Present: soft, normoactive bowel sounds, surgical scars (Steri strips dry and intact; no drainage or erythema) - Urinary Catheter Management Indwelling Urethral Catheter Cath placed during this visit: yes, but has since been removed by the nurse Reason for continuing: Hourly intake/output Insertion date: 12/07/17 Insertion time: 15:05 Removal date: 12/08/17 Removal time: 12:15 Results - Labs CBC & Chem 7: 12/09/17 07:03 12/09/17 07:03 Laboratory Results - last 24 hr 12/08/17 12/09/17 12/09/17 04:50 07:03 07:03 WBC 10.8 RBC 4.35 Hgb 13.3 Hct 39.1 MCV 89.7 D MCH 30.5 MCHC 34.0 RDW 13.9 Plt Count 356 MPV 7.6 Neut % (Auto) 75.1 H Lymph % (Auto) 13.6 Lander % (Auto) 9.3 H Eos % (Auto) 1.2 Baso % (Auto) 0.8 Neut # (Auto) 8.1 H Lymph # (Auto) 1.5 Lander # (Auto) 1.0 H Eos # (Auto) 0.1 Baso # (Auto) 0.1 WBC Differential . Differential Comment Auto diff final Sodium 144 Potassium 3.1 L Chloride 109 H Carbon Dioxide 24.9 Anion Gap 10 BUN 8 Creatinine 0.63 Estimated GFR Greater than 89 Random Glucose 102 Calcium 7.9 L Magnesium 2.1 2.0 - Procedures laparoscopic hiatal hernia repair and partial fundoplication. Assessment and Plan - Assessment (1) Abdominal pain Code(s): R10.9 - Unspecified abdominal pain Status: Acute (2) Hiatal hernia Code(s): K44.9 - Diaphragmatic hernia without obstruction or gangrene Status: Acute Plan: POD #2 HH repair with [place] [employer]-A, improving each day; tolerating full liquid diet PT/OT to evaluate patient; may need to go to rehab before discharge to home Check CXR Check pulse oximeter I attest that I had a [id number] encounter with the patient on the same day, and personally performed and documented my assessment and findings in the medical record. The following services were provided during this hospital visit: Chart data review, vital sign assessments/reviewing monitor data Review of consultation notes if present Medication orders/review and/or management Ordering and/or reviewing lab tests Ordering and/or interpreting/reviewing x-rays and/or diagnostic studies Care of the patient and discussion of the patient with the care team Documentation time To help prompt me to consider important information that might be impacting today's encounter and assessment, Information from prior notes written by myself or my colleagues may have been "brought forward/copy and pasted" into today's note. (1) Abdominal pain Qualifiers: Abdominal location: upper abdomen, unspecified Qualified Code(s): R10.10 - Upper abdominal pain, unspecified
[2017-12-09] MEDS: Potassium Chlor 20 mEq Premix 20 MEQ/100 ML PIGGYBACK IV.SIG SCH ×3 (09:59→18:20)
--- NOTE | 2017-12-09 11:49 | XR ---
EXAM DATE: 12/09/2017 11:28 AM EDT AGE/SEX: 87 years / Female INDICATIONS: . Shortness of breath. CLINICAL DATA: This is the patient's initial encounter. Patient reports that signs and symptoms have been present for 3 days and indicates a pain score of 0/10. MEDICAL/SURGICAL HISTORY: None. None. COMPARISON: [facility] [place], CHEST 1V SINGLE AP, 12/07/2017. . FINDINGS: The cardiac silhouette is enlarged in transverse diameter. There is bilateral lower lobe atelectasis versus pneumonia left greater than right There has been no significant change when compared to the pr ior exam. The lungs are hypoinflated. CONCLUSION: Cardiomegaly. Bilateral lower lobe atelectasis versus pneumonia. There has been no significant change when compared to the prior exam. Electronically signed by: Alphonso Billy MD 12/09/2017 11:48 AM EDT
[2017-12-09] MEDS: Morphine Sulfate Inj 2 MG/ML Vial IV.PUSH PRN ×3 (13:11→22:17)
--- NOTE | 2017-12-09 13:12 | P.PN ---
Subjective Interval history: Follow-up abdominal surgery. Patient complaining of shortness of breath and was noted to be hypoxic this morning. After sitting up and deep breathing, patient improved and now saturating well on room air. Chest x-ray without acute findings. Likely has atelectasis. Tolerating p.o. Physical Exam Vital signs: Vital Signs 12/08/17 16:00 12/08/17 16:02 12/08/17 20:00 Temperature 97.6 F 98.5 F Pulse Rate 95 H 101 H Respiratory Rate 20 20 Blood Pressure 156/72 H 158/72 H Pulse Oximetry 93 L 97 92 L 12/09/17 00:00 12/09/17 08:00 Temperature 98.0 F 98.0 F Pulse Rate 105 H 103 H Respiratory Rate 20 18 Blood Pressure 125/58 L 161/71 H Pulse Oximetry 93 L 91 L Intake & Output 12/08/17 12/09/17 12/09/17 18:59 06:59 18:59 Intake Total 2480 / 2480 1320 / 1320 Output Total 425 / 425 100 / 100 Balance 2054 / 2054 1320 / 1320 -100 / -100 Intake: IV 1999 1000 / 1000 NS Inj 1,000 ML @ 42 mls/hr IV. 1999 1000 / 1000 CONT .[id number] [facility] Rx#:[id number] Oral 480 / 480 320 / 320 Output: Urine 425 / 425 Stool 100 / 100 Other: # Voids 2 3 Date of Last Bowel Movement 12/07/17 12/09/17 # Bowel Movements 0 1 Narrative: Alert and awake Lungs clear equal in expansion CVS regular rate and rhythm Abd: Soft non tender - Urinary Catheter Management Indwelling Urethral Catheter Cath placed during this visit: yes, but has since been removed by the nurse Reason for continuing: Hourly intake/output Insertion date: 12/07/17 Insertion time: 15:05 Removal date: 12/08/17 Removal time: 12:15 Results - Labs CBC & Chem 7: 12/09/17 07:03 12/09/17 07:03 Laboratory Results - last 24 hr 12/09/17 12/09/17 07:03 07:03 WBC 10.8 RBC 4.35 Hgb 13.3 Hct 39.1 MCV 89.7 D MCH 30.5 MCHC 34.0 RDW 13.9 Plt Count 356 MPV 7.6 Neut % (Auto) 75.1 H Lymph % (Auto) 13.6 [place] % (Auto) 9.3 H Eos % (Auto) 1.2 Baso % (Auto) 0.8 Neut # (Auto) 8.1 H Lymph # (Auto) 1.5 [place] # (Auto) 1.0 H Eos # (Auto) 0.1 Baso # (Auto) 0.1 WBC Differential . Differential Comment Auto diff final Sodium 144 Potassium 3.1 L Chloride 109 H Carbon Dioxide 24.9 Anion Gap 10 BUN 8 Creatinine 0.63 Estimated GFR Greater than 89 Random Glucose 102 Calcium 7.9 L Magnesium 2.0 - Imaging Impressions Chest X-Ray 12/09/17 00:00 CONCLUSION: Cardiomegaly. Bilateral lower lobe atelectasis versus pneumonia. There has been no significant change when compared to the prior exam. - Procedures laparoscopic hiatal hernia repair and partial fundoplication. Assessment and Plan - Assessment (1) Abdominal pain Code(s): R10.9 - Unspecified abdominal pain Status: Acute (2) Hiatal hernia Code(s): K44.9 - Diaphragmatic hernia without obstruction or gangrene Status: Acute - Plan This is an 87-year-old female presented with abdominal pain and nausea/vomiting Large distended hiatal hernia with inflammatory findings -Likely the etiology of the patient's chronic abdominal pain -NG tube removed on 12/05. -Stable status post surgery. Continue clear liquid diet, IV fluids, mobilization and pain management. SIRS -Urine cultures and blood cultures are negative. -Repeat chest x-ray shows atelectasis. Incentive spirometry. Increase activity -CT the abdomen indicated mild left pleural effusion with atelectasis and/or consolidation left lower lobe -Will DC Rocephin. Monitor off anti-biotic since there is no infectious source. Back pain with right hip/leg pain -Continue pain control -continue Flexeril hyperlipidemia -continue home medication Depression -continue home medication Hypokalemia. Aggressive replacement repeat BMP and mag in the morning DVT prevention -Sequential compression devices and Lovenox Discharge Planning: Discharge when cleared by general surgery (1) Abdominal pain Qualifiers: Abdominal location: upper abdomen, unspecified Qualified Code(s): R10.10 - Upper abdominal pain, unspecified
[2017-12-10 07:47] LABS: Calcium 8.3 mg/dL (8.5-10.1); Carbon Dioxide 25.3 meq/L (21.0-32.0); Magnesium 1.9 mg/dL (1.5-2.5); Potassium 3.6 meq/L (3.5-5.1)
[2017-12-10] MEDS: Mirtazapine 15 MG Tablet PO SCH ×2 (09:24→21:54)
[2017-12-10] MEDS: Senna/Docusate Sodium 8.6/50 MG Tablet PO SCH ×2 (09:24→21:55)
[2017-12-10] MEDS: Ezetimibe 10 MG Tablet PO SCH (09:24)
[2017-12-10] MEDS: Enoxaparin Inj 40 MG/0.4 ML Syringe SQ SCH (09:24)
--- NOTE | 2017-12-10 13:55 | P.PN ---
Subjective Interval history: Follow-up abdominal surgery. States she is getting stronger. She is stooling tolerating liquid diet. Vital signs show tachycardia denies palpitations, chest pain and shortness of breath. Complains of left arm pain where she has superficial thrombophlebitis Physical Exam Vital signs: Vital Signs 12/09/17 16:00 12/09/17 20:00 12/10/17 00:00 Temperature 97.4 F L 97.8 F 99 F Pulse Rate 86 106 H 107 H Respiratory Rate 18 20 20 Blood Pressure 146/62 H 149/67 H 168/70 H Pulse Oximetry 92 L 93 L 92 L 12/10/17 05:00 Temperature 97.8 F Pulse Rate 114 H Respiratory Rate 20 Blood Pressure 151/77 H Pulse Oximetry 92 L Intake & Output 12/09/17 12/10/17 12/10/17 18:59 06:59 18:59 Intake Total 1300 / 1300 1460 / 1460 Output Total 100 / 100 Balance 1200 / 1200 1460 / 1460 Weight 69.4 kg Intake: IV 100 / 100 1100 / 1100 NS Inj 1,000 ML @ 42 mls/hr IV. 1000 / 1000 CONT .[id number] [facility] Rx#:[id number] KCl 20 mEq Premix Inj 20 meq In 100 / 100 100 / 100 100 ml @ 100 mls/hr IV.SIG Q1H [facility] Rx#:[id number] Oral 1200 / 1200 360 / 360 Output: Stool 100 / 100 Other: # Voids 6 5 Date of Last Bowel Movement 12/09/17 12/09/17 # Bowel Movements 1 2 Narrative: Alert and awake Lungs clear equal in expansion CVS regular rate and rhythm Abd: Soft non tender Superficial left arm thrombophlebitis - Urinary Catheter Management Indwelling Urethral Catheter Cath placed during this visit: yes, but has since been removed by the nurse Reason for continuing: Hourly intake/output Insertion date: 12/07/17 Insertion time: 15:05 Removal date: 12/08/17 Removal time: 12:15 Results - Labs CBC & Chem 7: 12/09/17 07:03 12/10/17 07:05 Laboratory Results - last 24 hr 12/10/17 07:05 Sodium 141 Potassium 3.6 Chloride 107 Carbon Dioxide 25.3 Anion Gap 9 BUN 4 L Creatinine 0.69 Estimated GFR 81 L Random Glucose 95 Calcium 8.3 L Magnesium 1.9 - Procedures laparoscopic hiatal hernia repair and partial fundoplication. Assessment and Plan - Assessment (1) Abdominal pain Code(s): R10.9 - Unspecified abdominal pain Status: Acute (2) Hiatal hernia Code(s): K44.9 - Diaphragmatic hernia without obstruction or gangrene Status: Acute - Plan This is an 87-year-old female presented with abdominal pain and nausea/vomiting Large distended hiatal hernia with inflammatory findings -Likely the etiology of the patient's chronic abdominal pain -NG tube removed on 12/05. -Stable status post surgery. Continue clear liquid diet, IV fluids, mobilization and pain management. SIRS -Urine cultures and blood cultures are negative. -Repeat chest x-ray shows atelectasis. Incentive spirometry. Increase activity -CT the abdomen indicated mild left pleural effusion with atelectasis and/or consolidation left lower lobe -Will DC Rocephin. Monitor off anti-biotic since there is no infectious source. Back pain with right hip/leg pain -Continue pain control -continue Flexeril hyperlipidemia -continue home medication Depression -continue home medication Hypokalemia. Aggressive replacement repeat BMP and mag in the morning Left arm thrombophlebitis. Symptomatic control DVT prevention -Sequential compression devices and Lovenox Discharge Planning: Discharge when cleared by general surgery-rehab versus home health care (1) Abdominal pain Qualifiers: Abdominal location: upper abdomen, unspecified Qualified Code(s): R10.10 - Upper abdominal pain, unspecified
[2017-12-10] MEDS: Sod Chloride 0.9% Inj 1,000 ML IV.CONT SCH ×2 (16:56)
--- NOTE | 2017-12-10 17:00 | P.PN ---
Subjective Interval history: Feels well; able to ambulate better with a walker in the hallway. Tolerating full liquids. Physical Exam Vital signs: Vital Signs 12/09/17 20:00 12/10/17 00:00 12/10/17 05:00 Temperature 97.8 F 99 F 97.8 F Pulse Rate 106 H 107 H 114 H Respiratory Rate 20 20 20 Blood Pressure 149/67 H 168/70 H 151/77 H Pulse Oximetry 93 L 92 L 92 L 12/10/17 08:00 12/10/17 12:00 Temperature 97.9 F 97.4 F L Pulse Rate 92 H 98 H Respiratory Rate 20 18 Blood Pressure 160/74 H 128/65 Pulse Oximetry 93 L 93 L Intake & Output 12/09/17 12/10/17 12/10/17 18:59 06:59 18:59 Intake Total 1300 / 1300 1460 / 1460 Output Total 100 / 100 Balance 1200 / 1200 1460 / 1460 Weight 69.4 kg Intake: IV 100 / 100 1100 / 1100 NS Inj 1,000 ML @ 42 mls/hr IV. 1000 / 1000 CONT .[id number] [facility] Rx#:[id number] KCl 20 mEq Premix Inj 20 meq In 100 / 100 100 / 100 100 ml @ 100 mls/hr IV.SIG Q1H [facility] Rx#:[id number] Oral 1200 / 1200 360 / 360 Output: Stool 100 / 100 Other: # Voids 6 5 Date of Last Bowel Movement 12/09/17 12/09/17 # Bowel Movements 1 2 - Constitutional no acute distress - Routine Respiratory Exam Present: CTA bilaterally - Routine Abdominal Exam Present: soft, normoactive bowel sounds Comments: No tenderness; Steri-Strips dry and intact. - Urinary Catheter Management Indwelling Urethral Catheter Cath placed during this visit: yes, but has since been removed by the nurse Reason for continuing: Hourly intake/output Insertion date: 12/07/17 Insertion time: 15:05 Removal date: 12/08/17 Removal time: 12:15 Results - Labs CBC & Chem 7: 12/09/17 07:03 12/10/17 07:05 Laboratory Results - last 24 hr 12/10/17 07:05 Sodium 141 Potassium 3.6 Chloride 107 Carbon Dioxide 25.3 Anion Gap 9 BUN 4 L Creatinine 0.69 Estimated GFR 81 L Random Glucose 95 Calcium 8.3 L Magnesium 1.9 - Procedures laparoscopic hiatal hernia repair and partial fundoplication. Assessment and Plan - Assessment (1) Abdominal pain Code(s): R10.9 - Unspecified abdominal pain Status: Acute (2) Hiatal hernia Code(s): K44.9 - Diaphragmatic hernia without obstruction or gangrene Status: Acute Plan: POD #3 HH repair with [facility], improving each day; tolerating full liquid diet May need to go to rehab before discharge to home Chest x-ray demonstrated persistent atelectasis. Encourage IS I attest that I had a [id number] encounter with the patient on the same day, and personally performed and documented my assessment and findings in the medical record. The following services were provided during this hospital visit: Chart data review, vital sign assessments/reviewing monitor data Review of consultation notes if present Medication orders/review and/or management Ordering and/or reviewing lab tests Ordering and/or interpreting/reviewing x-rays and/or diagnostic studies Care of the patient and discussion of the patient with the care team Documentation time To help prompt me to consider important information that might be impacting today's encounter and assessment, Information from prior notes written by myself or my colleagues may have been "brought forward/copy and pasted" into today's note. (1) Abdominal pain Qualifiers: Abdominal location: upper abdomen, unspecified Qualified Code(s): R10.10 - Upper abdominal pain, unspecified
[2017-12-11] MEDS: Morphine Sulfate Inj 2 MG/ML Vial IV.PUSH PRN (01:13)
[2017-12-11] MEDS: Sod Chloride 0.9% Inj 1,000 ML IV.CONT SCH ×3 (05:45→21:21)
[2017-12-11] MEDS: Enoxaparin Inj 40 MG/0.4 ML Syringe SQ SCH (09:08)
[2017-12-11] MEDS: Senna/Docusate Sodium 8.6/50 MG Tablet PO SCH ×2 (09:09→21:20)
[2017-12-11] MEDS: Ezetimibe 10 MG Tablet PO SCH (09:09)
--- NOTE | 2017-12-11 12:54 | P.PN ---
Subjective Interval history: Follow-up abdominal surgery. States she is doing okay except right arm pain when BP is taken with automated machine resulting to elevated BP and heart rate. Discussed with nursing. Physical Exam Vital signs: Vital Signs 12/10/17 16:00 12/10/17 20:00 12/11/17 00:00 Temperature 97.6 F 97.2 F L 97.8 F Pulse Rate 103 H 111 H 108 H Respiratory Rate 22 18 18 Blood Pressure 173/87 H 143/66 H 132/61 Pulse Oximetry 93 L 92 L 94 L 12/11/17 08:00 12/11/17 12:00 Temperature 97.2 F L 97.2 F L Pulse Rate 99 H 101 H Respiratory Rate 22 22 Blood Pressure 160/83 H 189/79 H Pulse Oximetry 95 96 Intake & Output 12/10/17 12/11/17 12/11/17 18:59 06:59 18:59 Intake Total 2400 / 2400 480 / 480 Output Total 1800 / 1800 Balance 600 / 600 480 / 480 Weight 69.4 kg Intake: Oral 2400 / 2400 480 / 480 Output: Urine 1800 / 1800 Other: # Voids 5 # Bowel Movements 1 4 Narrative: Alert and awake Lungs clear equal in expansion CVS regular rate and rhythm Abd: Soft non tender Superficial left arm thrombophlebitis - Urinary Catheter Management Indwelling Urethral Catheter Cath placed during this visit: yes, but has since been removed by the nurse Reason for continuing: Hourly intake/output Insertion date: 12/07/17 Insertion time: 15:05 Removal date: 12/08/17 Removal time: 12:15 Results - Labs CBC & Chem 7: 12/09/17 07:03 12/10/17 07:05 - Procedures laparoscopic hiatal hernia repair and partial fundoplication. Assessment and Plan - Assessment (1) Abdominal pain Code(s): R10.9 - Unspecified abdominal pain Status: Acute (2) Hiatal hernia Code(s): K44.9 - Diaphragmatic hernia without obstruction or gangrene Status: Acute - Plan This is an 87-year-old female presented with abdominal pain and nausea/vomiting Large distended hiatal hernia with inflammatory findings -Likely the etiology of the patient's chronic abdominal pain -NG tube removed on 12/05. -Stable status post surgery. Continue clear liquid diet, IV fluids, mobilization and pain management. SIRS -Urine cultures and blood cultures are negative. -Repeat chest x-ray shows atelectasis. Incentive spirometry. Increase activity -CT the abdomen indicated mild left pleural effusion with atelectasis and/or consolidation left lower lobe -Will DC Rocephin. Monitor off anti-biotic since there is no infectious source. Back pain with right hip/leg pain -Continue pain control -continue Flexeril hyperlipidemia -continue home medication Depression -continue home medication Hypokalemia. Aggressive replacement repeat BMP and mag in the morning Left arm thrombophlebitis. Symptomatic control Elevated BP and heart rate secondary to pain. We will continue to monitor DVT prevention -Sequential compression devices and Lovenox Discharge Planning: Discharge when cleared by general surgery-rehab versus home health care (1) Abdominal pain Qualifiers: Abdominal location: upper abdomen, unspecified Qualified Code(s): R10.10 - Upper abdominal pain, unspecified
--- NOTE | 2017-12-11 14:41 | P.DCO ---
- Diagnosis (1) Abdominal pain - Physical Therapy Order: Evaluate and treat, Improve ambulation, Strength and gait training - Home Health Nursing Order: Medical education, Medication education-adverse effect, Nursing assessment with vital signs - Certification I have seen patient Kourtney Fox on 12/11/17. My clinical findings support the need for the requested home health care services because: Deconditioned with increased weakness, Limited ability to care for self I certify that my clinical findings support that this patient is homebound because: Need for psychosocial assistance (1) Abdominal pain Qualifiers: Abdominal location: upper abdomen, unspecified Qualified Code(s): R10.10 - Upper abdominal pain, unspecified
--- NOTE | 2017-12-11 18:04 | P.PNGS ---
Subjective Patient reports: feels better, bowel movement Interval history: DAILY PROGRESS NOTE FOR SURGICAL ATTENDING, DR. KAMINI COLEMAN Feeling better Tolerating diet Excited to leave the hospital soon Physical Exam Vital signs: Vital Signs 12/10/17 20:00 12/11/17 00:00 12/11/17 08:00 Temperature 97.2 F L 97.8 F 97.2 F L Pulse Rate 111 H 108 H 99 H Respiratory Rate 18 18 22 Blood Pressure 143/66 H 132/61 160/83 H Pulse Oximetry 92 L 94 L 95 12/11/17 12:00 12/11/17 16:00 Temperature 97.2 F L 97.7 F Pulse Rate 101 H 104 H Respiratory Rate 22 20 Blood Pressure 189/79 H 156/74 H Pulse Oximetry 96 91 L Intake & Output 12/10/17 12/11/17 12/11/17 18:59 06:59 18:59 Intake Total 2400 / 2400 480 / 480 Output Total 1800 / 1800 Balance 600 / 600 480 / 480 Weight 69.4 kg Intake: Oral 2400 / 2400 480 / 480 Output: Urine 1800 / 1800 Other: # Voids 5 # Bowel Movements 1 4 Narrative: Alert and awake Abd: Soft non tender Superficial left arm thrombophlebitis - Additional findings Additional findings: ITS Impressions Abdomen/Pelvis CTA 12/02/17 19:56 CONCLUSION: 1. No significant area of arterial stenosis is seen. 2. Large hiatal hernia with a very distended stomach. There is some mild induration of the fat around the hiatal hernia. It is thought the dilated hiatal hernia is much more likely a source for abdominal pain. 3. Colonic diverticula without inflammatory change. 4. Minimal left pleural effusion with accompanying atelectasis or consolidation at the left lower lobe. Chest X-Ray 12/09/17 00:00 CONCLUSION: Cardiomegaly. Bilateral lower lobe atelectasis versus pneumonia. There has been no significant change when compared to the prior exam. Laboratory Last Values CBC w Diff Auto diff final 12/04/17 05:30 WBC 10.8 th/mm3 (4.0-11.0) 12/09/17 07:03 RBC 4.35 mil/mm3 (4.00-5.30) 12/09/17 07:03 Hgb 13.3 gm/dL (11.6-15.3) 12/09/17 07:03 Hct 39.1 % (35.0-46.0) 12/09/17 07:03 MCV 89.7 fL (80.0-100.0) D 12/09/17 07:03 MCH 30.5 pg (27.0-34.0) 12/09/17 07:03 MCHC 34.0 % (32.0-36.0) 12/09/17 07:03 RDW 13.9 % (11.6-17.2) 12/09/17 07:03 Plt Count 356 th/mm3 (150-450) 12/09/17 07:03 MPV 7.6 fL (7.0-11.0) 12/09/17 07:03 Neut % (Auto) 75.1 % (16.0-70.0) H 12/09/17 07:03 Lymph % (Auto) 13.6 % (9.0-44.0) 12/09/17 07:03 [place] % (Auto) 9.3 % (0.0-8.0) H 12/09/17 07:03 Eos % (Auto) 1.2 % (0.0-4.0) 12/09/17 07:03 Baso % (Auto) 0.8 % (0.0-2.0) 12/09/17 07:03 Neut # (Auto) 8.1 th/mm3 (1.8-7.7) H 12/09/17 07:03 Lymph # (Auto) 1.5 th/mm3 (1.0-4.8) 12/09/17 07:03 [place] # (Auto) 1.0 th/mm3 (0.0-0.9) H 12/09/17 07:03 Eos # (Auto) 0.1 th/mm3 (0.0-0.4) 12/09/17 07:03 Baso # (Auto) 0.1 th/mm3 (0.0-0.2) 12/09/17 07:03 WBC Differential . 12/09/17 07:03 Differential Comment Auto diff final 12/09/17 07:03 Sodium 141 meq/L (136-145) 12/10/17 07:05 Potassium 3.6 meq/L (3.5-5.1) 12/10/17 07:05 Chloride 107 meq/L (98-107) 12/10/17 07:05 Carbon Dioxide 25.3 meq/L (21.0-32.0) 12/10/17 07:05 Anion Gap 9 meq/L (5-15) 12/10/17 07:05 BUN 4 mg/dL (7-18) L 12/10/17 07:05 Creatinine 0.69 mg/dL (0.50-1.00) 12/10/17 07:05 Estimated GFR 81 mL/min (>89) L 12/10/17 07:05 Random Glucose 95 mg/dL (74-106) 12/10/17 07:05 Lactic Acid 1.4 mmol/L (0.4-2.0) 12/03/17 10:45 Calcium 8.3 mg/dL (8.5-10.1) L 12/10/17 07:05 Magnesium 1.9 mg/dL (1.5-2.5) 12/10/17 07:05 Total Bilirubin 0.4 mg/dL (0.2-1.0) 12/04/17 05:20 AST 19 U/L (15-37) 12/04/17 05:20 ALT 22 U/L (10-53) 12/04/17 05:20 Alkaline Phosphatase 74 U/L (45-117) 12/04/17 05:20 Troponin I Less than 0.02 ng/mL (0.02-0.05) L 12/02/17 19:10 Total Protein 6.6 g/dL (6.4-8.2) D 12/04/17 05:20 Albumin 3.1 g/dL (3.4-5.0) L D 12/04/17 05:20 Lipase 366 U/L (73-393) 12/02/17 19:10 Urine Color Yellow (Yellw/Straw) 12/02/17 22:10 Urine Clarity Clear (Clear) 12/02/17 22:10 Urine pH 7.0 (5.0-8.5) 12/02/17 22:10 Ur Specific [place] 1.015 (1.002-1.035) 12/02/17 22:10 Urine Protein Trace mg/dL (Neg-Trace) 12/02/17 22:10 Urine Glucose (UA) Negative mg/dL (Negative) 12/02/17 22:10 Urine Ketones 15 mg/dL (Negative) H 12/02/17 22:10 Urine Occult Blood Small (Negative) H 12/02/17 22:10 Urine Nitrate Negative (Negative) 12/02/17 22:10 Urine Bilirubin Negative (Negative) 12/02/17 22:10 Urine Urobilinogen 0.2 mg/dL (Less than 2) 12/02/17 22:10 Ur Leukocyte Esterase Small (Negative) H 12/02/17 22:10 Urine RBC 0-3 /hpf (0-3) 12/02/17 22:10 Urine WBC 9-20 /hpf (0-5) H 12/02/17 22:10 Urine WBC Clumps Few (None) H 12/02/17 22:10 Ur Squamous Epith Cells 0-5 /hpf (0-5) 12/02/17 22:10 Micro UA Comment Culture indicated 12/02/17 22:10 Ur Microscopic Review Microscopic reviewed 12/02/17 22:10 Urine Culture Comments Culture indicated 12/02/17 22:10 - Urinary Catheter Management Indwelling Urethral Catheter Cath placed during this visit: yes, but has since been removed by the nurse Reason for continuing: Hourly intake/output Insertion date: 12/07/17 Insertion time: 15:05 Removal date: 12/08/17 Removal time: 12:15 Assessment and Plan - Assessment (1) Abdominal pain Code(s): R10.9 - Unspecified abdominal pain Status: Acute (2) Hiatal hernia Code(s): K44.9 - Diaphragmatic hernia without obstruction or gangrene Status: Acute Plan: 87 year old female with large hiatal hernia POD HH repair with [facility], improving each day; tolerating diet May need to go to rehab before discharge to home Encourage IS - Attending Attestation NOTE FOR SURGICAL ATTENDING, DR. KAMINI COLEMAN I attest that I had a [id number] encounter with the patient on the same day, and personally performed and documented my assessment and findings in the medical record. The following services were provided during this hospital visit: Chart data review, vital sign assessments/reviewing monitor data Review of consultations notes if present. Medication orders/review and/or management Ordering and/or reviewing lab tests Ordering and/or interpreting/reviewing x-rays and/or diagnostic studies Care of the patient and discussion of the patient with the care team Documentation time To help prompt me to consider important information that might be impacting today's encounter and assessment, Information from prior notes written by myself or my colleagues may have been "brought forward/copy and pasted" into today's note. (1) Abdominal pain Qualifiers: Abdominal location: upper abdomen, unspecified Qualified Code(s): R10.10 - Upper abdominal pain, unspecified
[2017-12-11] MEDS ORDERED: Acetaminophen 325 MG Tablet PO PRN (18:23)
[2017-12-11] MEDS ORDERED: Naloxone Inj 0.4 MG/ML Vial IV.PUSH PRN (18:23)
[2017-12-11] MEDS: Mirtazapine 15 MG Tablet PO SCH (21:21)
[2017-12-12] MEDS: Senna/Docusate Sodium 8.6/50 MG Tablet PO SCH (08:16)
[2017-12-12] MEDS: Enoxaparin Inj 40 MG/0.4 ML Syringe SQ SCH (08:18)
[2017-12-12] MEDS: Ezetimibe 10 MG Tablet PO SCH (08:18)
--- NOTE | 2017-12-12 11:46 | P.PNGS ---
Subjective Interval history: Ambulating in room Wants to take a shower Physical Exam Vital signs: Vital Signs 12/11/17 12:00 12/11/17 16:00 12/11/17 20:00 Temperature 97.2 F L 97.7 F 98.2 F Pulse Rate 101 H 104 H 100 H Respiratory Rate 22 20 18 Blood Pressure 189/79 H 156/74 H 152/76 H Pulse Oximetry 96 91 L 93 L 12/12/17 00:00 12/12/17 08:00 Temperature 97.8 F 97.4 F L Pulse Rate 98 H 104 H Respiratory Rate 18 20 Blood Pressure 122/72 164/76 H Pulse Oximetry 93 L 95 Intake & Output 12/11/17 12/12/17 12/12/17 18:59 06:59 18:59 Intake Total 2800 / 2800 480 / 480 Output Total 1400 / 1400 Balance 1400 / 1400 480 / 480 Weight 69.4 kg Intake: IV 1000 / 1000 NS Inj 1,000 ML @ 42 mls/hr IV. 1000 / 1000 CONT .[id number] [facility] Rx#:[id number] Oral 1800 / 1800 480 / 480 Output: Urine 1400 / 1400 Other: # Voids 2 # Bowel Movements 1 Narrative: Alert and awake Abd: lap incision sites c/d/i; non tender; soft No peripheral edema - Urinary Catheter Management Indwelling Urethral Catheter Cath placed during this visit: yes, but has since been removed by the nurse Reason for continuing: Hourly intake/output Insertion date: 12/07/17 Insertion time: 15:05 Removal date: 12/08/17 Removal time: 12:15 Results - Labs 12/09/17 07:03 12/10/17 07:05 Assessment and Plan - Assessment (1) Abdominal pain Code(s): R10.9 - Unspecified abdominal pain Status: Acute (2) Hiatal hernia Code(s): K44.9 - Diaphragmatic hernia without obstruction or gangrene Status: Acute Plan: 87 year old female with large hiatal hernia; POD5 HH repair with [facility] -Continue Full liquids--- she will go to rehab on fulls -No pain -OOB as tolerated -IS -GS clear for DC to rehab -Follow up with Dr. Jalloh Dec 19 at 3:40PM Tolerating diet well Discussed need for rehab with patient and son; she agrees The exam, history, and the medical decision-making described in the above note were completed with the assistance of the mid-level provider. I reviewed and agree with the findings presented. I attest that I had a [id number] encounter with the patient on the same day, and personally performed and documented my assessment and findings in the medical record. (1) Abdominal pain Qualifiers: Abdominal location: upper abdomen, unspecified Qualified Code(s): R10.10 - Upper abdominal pain, unspecified
--- NOTE | 2017-12-12 12:24 | P.PN ---
Subjective Interval history: Follow-up abdominal surgery. She is doing okay ambulating in the room. Surgery recommending SNF. PT recommends home care PT. Patient wants to go home. Physical Exam Vital signs: Vital Signs 12/11/17 16:00 12/11/17 20:00 12/12/17 00:00 Temperature 97.7 F 98.2 F 97.8 F Pulse Rate 104 H 100 H 98 H Respiratory Rate 20 18 18 Blood Pressure 156/74 H 152/76 H 122/72 Pulse Oximetry 91 L 93 L 93 L 12/12/17 08:00 Temperature 97.4 F L Pulse Rate 104 H Respiratory Rate 20 Blood Pressure 164/76 H Pulse Oximetry 95 Intake & Output 12/11/17 12/12/17 12/12/17 18:59 06:59 18:59 Intake Total 2800 / 2800 480 / 480 Output Total 1400 / 1400 Balance 1400 / 1400 480 / 480 Weight 69.4 kg Intake: IV 1000 / 1000 NS Inj 1,000 ML @ 42 mls/hr IV. 1000 / 1000 CONT .[id number] [facility] Rx#:[id number] Oral 1800 / 1800 480 / 480 Output: Urine 1400 / 1400 Other: # Voids 2 # Bowel Movements 1 Narrative: Alert and awake Abd: lap incision sites c/d/i; non tender; soft No peripheral edema - Urinary Catheter Management Indwelling Urethral Catheter Cath placed during this visit: yes, but has since been removed by the nurse Reason for continuing: Hourly intake/output Insertion date: 12/07/17 Insertion time: 15:05 Removal date: 12/08/17 Removal time: 12:15 Results - Labs CBC & Chem 7: 12/09/17 07:03 12/10/17 07:05 - Procedures laparoscopic hiatal hernia repair and partial fundoplication. Assessment and Plan - Assessment (1) Abdominal pain Code(s): R10.9 - Unspecified abdominal pain Status: Acute (2) Hiatal hernia Code(s): K44.9 - Diaphragmatic hernia without obstruction or gangrene Status: Acute - Plan This is an 87-year-old female presented with abdominal pain and nausea/vomiting Large distended hiatal hernia with inflammatory findings -Likely the etiology of the patient's chronic abdominal pain -NG tube removed on 12/05. -Stable status post surgery. Continue full liquid diet, IV fluids, mobilization and pain management. SIRS -Urine cultures and blood cultures are negative. -Repeat chest x-ray shows atelectasis. Incentive spirometry. Increase activity -CT the abdomen indicated mild left pleural effusion with atelectasis and/or consolidation left lower lobe -Will DC Rocephin. Monitor off anti-biotic since there is no infectious source. Back pain with right hip/leg pain -Continue pain control -continue Flexeril hyperlipidemia -continue home medication Depression -continue home medication Hypokalemia. Aggressive replacement repeat BMP and mag Left arm thrombophlebitis. Symptomatic control Elevated BP and heart rate secondary to pain. Improved we will continue to monitor DVT prevention -Sequential compression devices and Lovenox Discharge Planning: General surgery recommending SNF but patient wants to go home. PT recommends home care. Will clarify with general surgery. (1) Abdominal pain Qualifiers: Abdominal location: upper abdomen, unspecified Qualified Code(s): R10.10 - Upper abdominal pain, unspecified
[2017-12-12] MEDS: Sod Chloride 0.9% Inj 1,000 ML IV.CONT SCH ×2 (14:20)
--- NOTE | 2017-12-12 15:17 | P.DS ---
Date of admission: 12/08/17 11:51 Primary care physician: Opal Rossi MD Brief History from admission: 87-year-old female with known history of hyperlipidemia, depression who presented the hospital because of abdominal pain. Patient states that she has relatively chronic abdominal pain which she is been undergoing workup by her primary medical doctor Dr. Rossi over the last few months. Patient states that she had abdominal ultrasound performed and then subsequently referred to have a HIDA scan performed. She is told that she produces too much bile. However patient has continued abdominal pain. She did go visit her son up in [place] 2 weeks ago and she just progressively had abdominal pain with dry heaves. She went to a ER up in [place] and they did evaluation on her and told her that they could not find anything wrong. The pain progressively got worse so she flew home 1 week early and came straight to the emergency department without going home. Patient had workup done emergency department and had findings could have of sepsis to include leukocytosis, lactic acidosis, tachycardia, urinary tract infection. CT scan was done of the abdomen which did indicate distended hiatal hernia which could be the etiology of her abdominal comfort. ER physician did discuss the case with general surgery who is in agreement with the tentative treatment plan of NG tube to low intermittent suction and consult as needed. Upon evaluating the patient she does have NG tube in place with continued output. Patient still holding her abdomen indicates she still having significant amount of pain. Patient denies any hematemesis. She states that there was dark colored stool. She indicates that the ER physician did a test and told her that it was not blood. Patient indicates that she is not followed up with any GI physician in reference to her abdominal pain. DS: Diagnosis - Discharge Diagnosis (1) Abdominal pain Status: Acute (2) Hiatal hernia Status: Acute DS: Medications - Discharge Medications Prescriptions: hydrocodone-acetaminophen 1 tab PO Q6H PRN #12 tab PRN Reason: Acute Pain DS: Summary Hospital Course: This is an 87-year-old female presented with abdominal pain and nausea/vomiting Large distended hiatal hernia with inflammatory findings -Likely the etiology of the patient's chronic abdominal pain -NG tube removed on 12/05. -Stable status post surgery. Continue full liquid diet, IV fluids, mobilization and pain management. SIRS -Urine cultures and blood cultures are negative. -Repeat chest x-ray shows atelectasis. Incentive spirometry. Increase activity -CT the abdomen indicated mild left pleural effusion with atelectasis and/or consolidation left lower lobe -Will DC Rocephin. Monitor off anti-biotic since there is no infectious source. Back pain with right hip/leg pain -Continue pain control -continue Flexeril hyperlipidemia -continue home medication Depression -continue home medication Hypokalemia. Aggressive replacement repeat BMP and mag Left arm thrombophlebitis. Symptomatic control Elevated BP and heart rate secondary to pain. Improved we will continue to monitor DVT prevention -Sequential compression devices and Lovenox - Time Spent with Patient Total time spent providing and/or coordinating discharge services: Greater than 30 minutes - Quality: VTE Deep Vein Thrombosis/Pulmonary Embolism Present on Admission: No Exam Vital signs: Vital Signs 12/11/17 16:00 12/11/17 20:00 12/12/17 00:00 Temperature 97.7 F 98.2 F 97.8 F Pulse Rate 104 H 100 H 98 H Respiratory Rate 20 18 18 Blood Pressure 156/74 H 152/76 H 122/72 Pulse Oximetry 91 L 93 L 93 L 12/12/17 08:00 12/12/17 12:00 Temperature 97.4 F L 97.8 F Pulse Rate 104 H 106 H Respiratory Rate 20 20 Blood Pressure 164/76 H 124/64 Pulse Oximetry 95 94 L Intake & Output 12/11/17 12/12/17 12/12/17 18:59 06:59 18:59 Intake Total 2800 / 2800 480 / 480 Output Total 1400 / 1400 Balance 1400 / 1400 480 / 480 Weight 69.4 kg Intake: IV 1000 / 1000 NS Inj 1,000 ML @ 42 mls/hr IV. 1000 / 1000 CONT .[id number] [facility] Rx#:[id number] Oral 1800 / 1800 480 / 480 Output: Urine 1400 / 1400 Other: # Voids 2 # Bowel Movements 1 Narrative: Alert and awake Abd: lap incision sites c/d/i; non tender; soft No peripheral edema Results Procedures completed during hospitalization: laparoscopic hiatal hernia repair and partial fundoplication. - Impressions ITS Impressions Abdomen/Pelvis CTA 12/02/17 19:56 CONCLUSION: 1. No significant area of arterial stenosis is seen. 2. Large hiatal hernia with a very distended stomach. There is some mild induration of the fat around the hiatal hernia. It is thought the dilated hiatal hernia is much more likely a source for abdominal pain. 3. Colonic diverticula without inflammatory change. 4. Minimal left pleural effusion with accompanying atelectasis or consolidation at the left lower lobe. Chest X-Ray 12/09/17 00:00 CONCLUSION: Cardiomegaly. Bilateral lower lobe atelectasis versus pneumonia. There has been no significant change when compared to the prior exam. Discharge Plan - Discharge Disposition Patient Disposition: 03 Discharge to SNF - Discharge Condition Condition: Stable - Discharge Order Discharge Orders: Discharge Order (Routine); Ordered 12/12/17 Ordered By: Arian Richards - Physicians Team Primary Care Provider: Opal Rossi Attending Provider: Arian Richards Other Providers: Car Jalloh MD
== END 2017-12-12 18:16 ==
LOC: PHED 18:45 → PHEDA 18:45 → PH3 12-03 00:12 → N06 12-05 12:18 → N03 12-07 17:28 → N07 12-08 18:32
PROVIDERS: ADMIT Internal Medicine; ATTEND Internal Medicine